=== PATIENT | male | born 1950 | race Caucasian/White ===

== ENCOUNTER 2018-02-21 09:00 | Observation (INO) | payer OTHER ==
[2018-03-06] MEDS ORDERED: LR 1,000 ML IV ONE (05:42)
--- NOTE | 2018-03-06 07:03 | PDHPUP ---
History & Physical Update H&P update statement: This history and physical update is based on an assessment of the patient which was completed after admission or registration (within 24 hours), but prior to the surgery/procedure. H&P update: H&P reviewed & patient examined
[2018-03-06] MEDS ORDERED: ceFAZolin 2 GM/SWFI 2 GM/20 ML SYR IVP ONE (07:05)
--- NOTE | 2018-03-06 07:07 | PDANEPAE ---
ANE Past Medical History - Cardiovascular History Hx Hypertension: No Hx Arrhythmias: No Hx Chest Pain: No Hx Coronary Artery / Peripheral Vascular Disease: No Hx CHF / Valvular Disease: No Hx Palpitations: No - Pulmonary History Hx COPD: No Hx Asthma/Reactive Airway Disease: No Hx Recent Upper Respiratory Infection: No Hx Oxygen in Use at Home: No Hx Sleep Apnea: No Sleep Apnea Screening Result - Last Documented: Negative - Neurologic History Hx Cerebrovascular Accident: No Hx Seizures: No Hx Dementia: No - Endocrine History Hx Diabetes: No - Renal History Hx Renal Disorders: No - Liver History Hx Hepatic Disorders: No - Cancer History Hx Cancer: Yes Cancer History Comment: prostate - Congenital Disorder History Hx Congenital Disorders: No - GI History Hx Gastrointestinal Disorders: No - Other Health History Other Health History: lower denture - Chronic Pain History Chronic Pain: No - Surgical History Prior Surgeries: none ANE Review of Systems Review of Systems: - Exercise capacity METS (RN): 4 METS ANE Patient History - Allergies Allergies/Adverse Reactions: No Known Allergies Allergy (Verified 02/28/18 11:59) - Home Medications Home Medications: Acetaminophen [Tylenol 325mg (*)] 325 mg PO DAILY PRN 02/26/18 [Last Taken 02/20] Ascorbic Acid [Vitamin C 500 mg (*)] 500 mg PO DAILY 02/26/18 [Last Taken ] - NPO status NPO Since - Liquids (Date): 03/05/18 NPO Since - Liquids (Time): 20:00 NPO Since - Solids (Date): 03/05/18 NPO Since - Solids (Time): 19:00 - Smoking Hx Smoking Status: Former smoker - Family Anes Hx Family Hx Anesthesia Complications: none ANE Labs/Vital Signs - Vital Signs Blood Pressure: 146/92 Heart Rate: 79 Respiratory Rate: 16 O2 Sat (%): 95 Height: 176 cm Weight: 81 kg ANE Physical Exam - Airway Neck exam: FROM Mallampati Score: Class 2 Mouth exam: normal dental/mouth exam, dentures - Pulmonary Pulmonary: no respiratory distress, no rales or rhonchi, clear to auscultation - Cardiovascular Cardiovascular: regular rate and rhythym, no murmur, rub, or gallop - ASA Status ASA Status: II ANE Anesthesia Plan Anesthesia Plan: GA w LMA
[2018-03-06] MEDS ORDERED: fentaNYL 100 MCG/2 ML INJ ONE (07:13)
[2018-03-06] MEDS ORDERED: PROPOFOL/EMULSION 500 MG/50 ML BOTTLE IV ONE (07:13)
[2018-03-06] MEDS ORDERED: LIDOCAINE 2% JELLY 20 ML (UROJECT) ONE (07:31)
[2018-03-06] MEDS ORDERED: ONDANSETRON 4 MG/2 ML VIAL ONE (07:36)
[2018-03-06] MEDS ORDERED: epHEDrine SULFATE 10 MG/ML SYR ONE (07:36)
[2018-03-06] MEDS ORDERED: LIDOCAINE 2% 5 ML SDV ONE (07:36)
[2018-03-06] MEDS ORDERED: PROPOFOL 200 MG/20 ML VIAL ONE (08:21)
[2018-03-06] MEDS ORDERED: PHENYLEPHRINE HCL 100 MCG/ML SYR ONE (08:23)
[2018-03-06] MEDS ORDERED: ONDANSETRON DISINTEGRATING 4 MG TAB PO PRN (08:40)
[2018-03-06] MEDS ORDERED: ONDANSETRON 4 MG/2 ML VIAL IVP PRN ×2 (08:40→08:42)
[2018-03-06] MEDS ORDERED: OPIUM/BELLADONNA ALKALO SUPP PR PRN (08:40)
[2018-03-06] MEDS ORDERED: HYDROCODONE/APAP 5/325 TAB PO PRN (08:40)
--- NOTE | 2018-03-06 08:40 | POSTOPPROG ---
Post Op Note Date of Operation: 03/06/18 Surgeon: Louie Richardson Anesthesia: LMA Pre-op Diagnosis: prostate cancer, retention Procedure: turp Inf/Abcess present in the surg proc area at time of surgery?: No EBL: 50-100 Complications: none Drains: Other (catheter) Specimen(s): sent, dictated
[2018-03-06] MEDS ORDERED: fentaNYL 100 MCG/2 ML INJ IVP PRN (08:42)
[2018-03-06] MEDS ORDERED: NALOXONE HCL 0.4 MG/ML INJ IVP PRN (08:42)
[2018-03-06] MEDS ORDERED: ALBUTEROL 3 ML DEYVIAL IH PRN (08:42)
[2018-03-06] MEDS ORDERED: DEXAMETHASONE 4 MG/ML VIAL IVP PRN (08:42)
[2018-03-06] MEDS ORDERED: LR 500 ML IV PRN (08:42)
[2018-03-06] MEDS ORDERED: D5W LR 1,000 ML IV SCH (08:45)
--- NOTE | 2018-03-06 08:45 | POSTANESTH ---
Post Anesthetic Evaluation Cardiovascular Status: Normal, Stable, Similar to Pre-Op Cond Respiratory Status: Normal, Stable, Similar to Pre-op Cond. Level of Consciousness/Mental Status: Can Participate in Eval Pain Control: Adequate, Prn Tx Ordered Nausea/Vomiting Control: Adequate, Prn Tx Ordered Complications Possibly Related to Anesthesia: None Noted
--- NOTE | 2018-03-06 09:10 | GOP ---
[f rep st] OPERATIVE REPORT DATE OF OPERATION: 03/06/2018 SURGEON: Louie Richardson MD ANESTHESIA: Underwent general anesthesia. ANESTHESIOLOGIST: Genie Kennedy MD. PREOPERATIVE DIAGNOSIS: Prostate cancer with urinary retention and status post radiation. POSTOPERATIVE DIAGNOSIS: Prostate cancer with urinary retention and status post radiation, severe co ntraction of his pelvic floor. PROCEDURE PERFORMED: Urethral dilation and then transurethral resection of the prostate. FINDINGS: SPECIMENS: Sent to pathology. DESCRIPTION OF PROCEDURE: Prepped and draped in normal sterile fashion in dorsal lithotomy position. After appropriate time-out, we tried to pass the resectoscope and he was fixed at the pelvic floor with some scarring so at that point, I was able to pass a guidewire into the bladder and then with e nephrostomy tube cylinder technique dilation, I dilated to 26-Monegasque and then at that point, was ab le to pass the resectoscope under direct vision in the bladder. The bladder had no tumor stones or f oreign body, but he did have radiation changes of the trigone and base of the bladder and the intrave sical lobe. So at that point, I did a channel type TUR of the prostate, taking down the intravesical lobe and then going posterior and just up to about the 4 o'clock and 8 o'clock positions on the uret hra out to the verumontanum. The verumontanum was preserved. At the end of the procedure, the bladd er was Ellik 'd free of all chips and clots. Visualization revealed no residual chips or clots. Ure teral orifices were preserved and verumontanum preserved. External sphincter approximated at the mid line and symmetrically. Uro-jet was placed in the urethra and a 22-Monegasque catheter passed over a Marva deo guide. Balloon inflated to 60 cc and urine was clear. He irrigated clear. He will be admitted for postoperative care CONSENT: Preoperatively, I did discuss with him and his in detail the risk of the surgery of bl eeding, infection, inability to do the procedure, urinary incontinence and postop scarring and writte n verbal consent had been obtained. They were aware of the potential risks and gave consent for this . COMPLICATIONS: None. /[id number]/MODL
[2018-03-06] MEDS: ACETAMINOPHEN 325 MG TAB PO PRN (19:22)
[2018-03-07] MEDS: ACETAMINOPHEN 325 MG TAB PO PRN (04:27)
[2018-03-07 08:46] VITALS: BP 107/65
--- NOTE | 2018-03-07 09:26 | SOAPPROG ---
SOAP Progress Note Assessment/Plan: Assessment: Prostate cancer Acute causing retention Urinary retention Acute POD 1, remove gage and consider dc home, path pending Plan: DC gage, dc if voids 03/07/18 10:57 Subjective: happy and ready for DC Objective: Vital Signs Temp Pulse Resp BP Pulse Ox 36.8 C 77 16 107/65 91 L 03/07/18 08:43 03/07/18 08:43 03/07/18 08:43 03/07/18 08:43 03/07/18 08:43 03/06/18 03/07/18 03/08/18 05:59 05:59 05:59 Intake Total 1500 Output Total 1950 2800 Balance -450 -2800 Physical Exam - Physical Exam General Appearance: alert Neck: supple Respiratory: No respiratory distress Cardiac/Chest: regular rate, rhythm Abdomen: soft Back: No CVA tenderness Neuro/Psych: alert, oriented x 3 ICD10 Worksheet Patient Problems: Problems Problem Status Onset Prostate cancer Acute Urinary retention Acute - ICD10 Problem Qualifiers (1) Prostate cancer (2) Urinary retention
== END 2018-03-07 15:36 | disposition home or self-care (01) ==
LOC: INTOOBSV 03-06 05:35 → F1N 03-06 05:35
PROVIDERS: ADMIT Specialist; ATTEND Specialist
DX: C61 Malignant neoplasm of prostate (principal); N40.0 Benign prostatic hyperplasia without lower urinary tract symptoms; Z92.3 Personal history of irradiation; Z87.891 Personal history of nicotine dependence
CPT/HCPCS: 52601; C1769; G0378; J0690; J2370; J2405; J2704; J3010

== ENCOUNTER 2018-07-16 06:33 | Day surgery (SDC) | payer OTHER ==
[2018-07-16] MEDS ORDERED: NALOXONE HCL 0.4 MG/ML INJ IVP PRN (07:21)
[2018-07-16] MEDS ORDERED: MIDAZOLAM 2 MG/2 ML VIAL IVP PRN (07:21)
[2018-07-16] MEDS ORDERED: fentaNYL 100 MCG/2 ML INJ IVP PRN (07:21)
[2018-07-16] MEDS ORDERED: MEPERIDINE 25 MG/ML SYR IVP PRN (07:21)
[2018-07-16] MEDS ORDERED: FLUMAZENIL 0.5 MG/5 ML MDV IVP PRN (07:21)
[2018-07-16] MEDS ORDERED: NS 1,000 ML IV SCH (07:30)
[2018-07-16] MEDS ORDERED: ceFAZolin 2 GM/DEXTROSE 100 ML IV ONE (08:00)
[2018-07-16 08:04] LABS: PLATELET COUNT 213 10^3/uL (150-400)
[2018-07-16 08:14] LABS: INR 0.95 (0.83-1.16); PROTIME(PATIENT) 12.9 SEC (12.0-15.0)
[2018-07-16] MEDS ORDERED: LIDOCAINE 1% 300 MG/30 ML SDV ONE (08:45)
[2018-07-16] MEDS ORDERED: HEPARIN 50,000 UNIT/10 ML VIAL ONE (08:46)
[2018-07-16] MEDS ORDERED: NALOXONE HCL 0.4 MG/ML INJ ONE (08:48)
[2018-07-16] MEDS ORDERED: MIDAZOLAM 2 MG/2 ML VIAL ONE ×2 (08:48→09:42)
[2018-07-16] MEDS ORDERED: FLUMAZENIL 0.5 MG/5 ML MDV IVP ONE (08:48)
[2018-07-16] MEDS ORDERED: fentaNYL 100 MCG/2 ML INJ ONE ×2 (08:48→09:42)
--- NOTE | 2018-07-16 09:25 | PDRADPRE ---
Radiology History & Physical Indication for procedure: cancer, other (Need for pheresis catheter for Provenge therapy.) Home medications: Acetaminophen [Tylenol 325mg (*)] 325 mg PO DAILY PRN 02/26/18 [Last Taken 07/02] Ascorbic Acid [Vitamin C 500 mg (*)] 500 mg PO DAILY 02/26/18 [Last Taken ] Allergies/Adverse Reactions: No Known Allergies Allergy (Verified 02/28/18 11:59) Mental status: A&Ox3 Heart exam: regular rate and rhythm Lungs exam: clear to auscultation Mallampati Score: Class 2
--- NOTE | 2018-07-16 09:26 | PDPROPOC ---
Sedation Plan of Care Sedation Plan of Care: vital signs stable, mental status noted, patient educated of risks, benefits, alternatives, patient can tolerate sedation ASA Classification: ASA 2 Planned drugs: fentanyl, midazolam Mallampati Score: Class 2 Mallampati Reference Image: Patient passed 3-3-2 rule?: Yes
[2018-07-16] MEDS ORDERED: ACETAMINOPHEN 325 MG TAB PO PRN (10:02)
[2018-07-16] MEDS ORDERED: ONDANSETRON 4 MG/2 ML VIAL IVP PRN (10:02)
--- NOTE | 2018-07-16 10:02 | PDRADPN ---
Radiology Procedure Note Date of Procedure: 07/16/18 Radiologist: Madi Fuller Anesthesia: IV Sedation Pre-op Diagnosis: Prostate CA Post-op Diagnosis: Prostate CA Indication: Pheresis Procedure: Tunneled CVC catheter placement Finding(s): Tunneled right IJ CVC Inf/Abcess present in the surg proc area at time of surgery?: No
[2018-07-16 13:09] VITALS: BP 144/84
== END 2018-07-16 13:04 | disposition home or self-care (01) ==
LOC: FIMAGING 06:33
PROVIDERS: ATTEND Specialist
DX: C61 Malignant neoplasm of prostate (principal)
CPT/HCPCS: 84402-90; C1750; G0103; J0690; J1644; J2250; J2310; J3010

== ENCOUNTER 2018-08-07 12:34 | Inpatient (IN) | payer OTHER ==
--- NOTE | 2018-08-07 12:59 | EDPHY ---
H & P Stated Complaint: left leg swelling and decreased O2 sats - Personal History Current Tetanus/Diphtheria Vaccine: Unsure Current Tetanus Diphtheria and Acellular Pertussis (TDAP): Unsure - Medical/Surgical History Hx Asthma: No Hx Chronic Respiratory Disease: No Hx Diabetes: No Hx Cardiac Disease: No Hx Renal Disease: No Hx Cirrhosis: No Hx Alcoholism: No Hx HIV/AIDS: No Hx Splenectomy or Spleen Trauma: No Other PMH: diagnosed with prostate cancer 2004 currently undergoing immune therapy - Social History Smoking Status: Never smoked Alcohol Use: Sober Time Seen by Provider: 08/07/18 12:49 HPI/ROS: CHIEF COMPLAINT: Left lower extremity swelling and pain HISTORY OF PRESENT ILLNESS: 68-year-old male with metastatic prostate cancer presents with left lower extremity swelling. Onset of swelling yesterday afternoon, gradually increasing. Associated with moderate pain of the entire left leg. Was in Dr. Richardson office prior to arrival for an IV dose of immunotherapy. No shortness of breath or chest pain. No prior history of thromboembolism. REVIEW OF SYSTEMS: complete 10 point ROS reviewed and is negative except for the noted elements in the HPI (Shamika Cali S) - Physical Exam Exam: General Appearance: Alert, pleasant Eyes: Pupils equal and round, no conjunctival pallor or injection ENT, Mouth: Mucous membranes moist Neck: Normal inspection Respiratory: Lungs are clear to auscultation Cardiovascular: Regular rate and rhythm Gastrointestinal: Abdomen is soft and nontender Neurological: A&O, nonfocal, normal gait Skin: Warm and dry, no rash Extremities: Left lower extremity-moderate swelling and tenderness of the entire leg with a reddish discoloration Vascular: 1+ pedal pulses Psychiatric: Mood and affect normal (Shamika Cali S) Constitutional: Initial Vital Signs Heart Rate 79 08/07/18 12:41 Respiratory Rate 21 H 08/07/18 12:41 Blood Pressure 129/85 H 08/07/18 12:41 O2 Sat (%) 96 08/07/18 12:41 O2 Delivery Mode Nasal Cannula O2 (L/minute) 2 Allergies/Adverse Reactions: No Known Allergies Allergy (Verified 02/28/18 11:59) Home Medications: Medication Instructions Recorded Ibuprofen [Motrin (*)] 200 mg PO DAILY PRN 08/07/18 Ranitidine HCl [Zantac 75] 75 mg PO DAILY PRN 08/07/18 diphenhydrAMINE [Benadryl 25 MG 25 mg PO DAILY PRN 08/07/18 (*)] Medical Decision Making - Diagnostics Imaging: Discussed imaging studies w/ radiator core tester Radiologist ED Course/Re-evaluation: I assumed care of this patient at 315. Currently we are awaiting repeat PTT as well as further interventions from hospital medicine and IR concerning the patient's extensive lower extremity DVT. Patient is also undergoing a CT scan of the chest and abdomen pelvis to evaluate for further thromboembolic disease. Patient's CT scan of the chest does demonstrate moderate right lower lobe clot burden. There is no thromboembolic disease in the IVC. Repeat PTT again is quite elevated at greater than 250. Of note, this lab value was drawn after the bolus of heparin. Patient's platelets are also noted to be 42, and IR will not be able to perform her procedure until the platelet count is closer to the 100 range. I consulted with Dr. Meadows regarding the above issues. He will consult with pharmacy with respect to initiation of the heparin drift and has ordered a platelet transfusion. Patient was taken to his inpatient bed at 4:45 p.m. I did discuss the CT results with the family and discussed the issues regarding abnormal coagulation panel and low platelets. Patient and his family deny any prior history of coagulopathy or thrombocytopenia (Nettie Sharp) Lower extremity ultrasound reveals extensive clot in the left lower leg. Results discussed with the patient. IV heparin started per protocol. Consulted Dr. Metzger for IR thrombolysis. Pt seen by Dr. Metzger, will plan for IR thrombolysis. Hospitalist service was consulted for admission. CT pulmonary angiogram pending. Elevated PTT noted. Apparently, the PTT was drawn prior to initiation of heparin. ?lab error, Heparin drip held, will recheck PTT. Dr. Randolph informed, will f/u on PTT, restart IV Heparin if indicated. (Shamika Cali) Differential Diagnosis: Differential diagnosis includes though it is not limited to arterial compromise , cellulitis, necrotizing fasciitis, osteomyelitis, neurovascular compromise. ( Shamika Cali) - Data Points Laboratory Results: Laboratory Results 08/07/18 13:17 08/07/18 13:17 Medications Given: Hydrocodone Bitart/Acetaminophen (Anderson 5/325) 1 - 2 tab PO Q4HRS PRN PRN Reason: Pain, Moderate Able to Take PO Stop: 08/17/18 15:04 Last Admin: 08/08/18 14:47 Dose: 1 tab Argatroban 250 mg/ Dextrose 252.5 mls @ 0 mls/hr IV CONT JEOVANY; Per Protocol PRN Reason: Protocol Stop: 02/03/19 20:29 Last Admin: 08/07/18 20:36 Dose: 252.5 mls Discontinued Medications Fentanyl (Sublimaze) 0 mcg IVP ONCALL PRN PRN Reason: Per provider during procedure Stop: 08/08/18 19:15 Last Admin: 08/08/18 18:21 Dose: 100 mcg Heparin Sodium (Porcine) (Heparin Injection) 0 unit IVP EDNOW ONE Stop: 08/07/18 13:40 Last Admin: 08/07/18 14:30 Dose: 6,200 units Heparin Sodium (Porcine) (Heparin 50 Units/Ml (Premix)) 500 mls @ 0 mls/hr IV EDNOW ONE; Per Protocol PRN Reason: Protocol Stop: 08/07/18 13:40 Last Admin: 08/07/18 14:30 Dose: 500 mls Sodium Chloride (Ns) 1,000 mls @ 100 mls/hr IV CONT JEVOANY Stop: 08/08/18 01:14 Last Admin: 08/07/18 17:46 Dose: 1,000 mls Sodium Chloride (Ns) 1,000 mls @ 75 mls/hr IV CONT JEOVANY Stop: 08/08/18 21:34 Last Admin: 08/08/18 09:00 Dose: 1,000 mls Midazolam HCl (Versed) 0 mg IVP ONCALL PRN PRN Reason: Per provider during procedure Stop: 08/08/18 19:15 Last Admin: 08/08/18 18:21 Dose: 2 mg Departure - Departure Disposition: [facility] Inpatient Acute Clinical Impression: DVT (deep venous thrombosis) Qualifiers: DVT location: lower extremity Affected thrombotic vein of extremity: unspecified vein of extremity Chronicity: acute Laterality: left Qualified Code( s): I82.402 - Acute embolism and thrombosis of unspecified deep veins of left lower extremity Pulmonary embolism Qualifiers: Pulmonary embolism type: other Chronicity: acute Acute cor pulmonale presence: without acute cor pulmonale Qualified Code(s): I26.99 - Other pulmonary embolism without acute cor pulmonale Condition: Fair
--- NOTE | 2018-08-07 13:36 | GHP ---
DATE OF ADMISSION: 08/07/2018 This is a consultation/addition to the H and P. By history, this is a 68-year-old [place] gentleman, who has had metastatic prostate cancer with lo rosario disease. His history has been difficult to piece together, but he had had biopsies in 2004 or 09 04, and had 39 IMR treatments for prostate cancer maybe at [facility], but could have been at [facility], in 2005, and through that time he has had a CAT scan and bone scans that were okay. He was clin ically staged as a Laure T2b N0 M0. He had been on clean intermittent catheterization for obstruct ion. We did put him on Lupron, trying to alleviate his obstruction. There is question of whether he had additional radiation in 2012, but I could not clarify that. He had had a TUR of the prostate in February of 2018, and that revealed he had prostate cancer residual. On exam, he had a fixed pelvis that was either related to metastatic disease, which was my impression based on his rising PSA and having metastatic castrate resistant prostate cancer. After the TUR of the prostate, he did well on voidin g, and with his PSA going up, we elected to try to do additional therapy, so we ordered an Axumin sca n that was not done due to cost. He had a bone scan recently that was without cancer. He did not pedroza ve the Axumin because of cost above and beyond his insurance coverage. So, he has had his port place d and he had his 1st Provenge 2 weeks ago and had the 2nd Provenge today. On 08/06, he presented to the office because he had acute swelling of his left leg that was edematous, and it was not painful. He had no pain over any deep vessels in his leg and the impression was this was lymphedema related t o his cancer. We see him in the office today and his swelling is worse, and he has pain in the leg, not necessarily over his blood vessels, and the impression is that he should be admitted for pain con trol and further assessment. He had an ultrasound planned today at 2:30 as an outpatient, but I have changed the plans to be admitted to assess for his pelvic malignancy. I have asked Dr. Castellanos to tr y to review his records to see if they can glean how much radiation he has had and on discussion afte r his ultrasound, we would recommend that he get an MRI of the pelvis and pelvis with and without con trast to assess for active prostate cancer with a lesion that maybe palliative radiation to the pelvi s, if there is a tumor site, could be performed. I did take him to the emergency room by wheelchair, checked him in there, talked with Dr. Cali and I feel that the transfer of care has been appropriate . PAST MEDICAL HISTORY: Urinary retention secondary to prostate cancer and he has a rising PSA for met astatic castrate resistant prostate cancer with a bone scan without lesions. PAST SURGICAL HISTORY: TURP. MEDICATIONS: Gabapentin. ALLERGIES: None. FAMILY HISTORY: Noncontributory. SOCIAL HISTORY: Nondrinker, nonsmoker. He is . REVIEW OF SYSTEMS: Negative cardiac, respiratory, GI and endocrine. He does have the prostate cance r and the severe left leg swelling. PHYSICAL EXAM: GENERAL: He is without acute distress, other than the left leg being swollen and hav ing difficulty ambulating. After his Provenge, he has had some chills. Prior to the Provenge, I did aspirate and irrigate the port site, confirmed there was no clot related to the port. Then, at the end, I had re-primed the port with 2.9 cc of heparin, and that site looks normal without suggestion o f infection. HEART: Regular rate and rhythm. ABDOMEN: Normal with no organomegaly, rebound or guar ding. LOWER EXTREMITIES: As discussed. His prior PSA in April of 2018, had been down to 3.37, and most recent, as of 07/16/2018, is up to 5.1 2. It did go down from 6.4 after the TURP, but then proceeded to rise. He originally in April had a testosterone of 31 that shows that he has normal effect of the Lupron. At the present time, he is be ing admitted. I had asked the hospitalist to see him and I will continue following the patient. I a ppreciate the hospitalist and the emergency room staff's care. /[id number]/MODL
[2018-08-07] MEDS ORDERED: HEPARIN/DEXTROSE 500 ML IV ONE (13:39)
[2018-08-07] MEDS ORDERED: HEPARIN 10,000 UNIT/10 ML MDV (1,000 UNIT/ML) IVP ONE ×2 (13:39→15:09)
[2018-08-07 13:54] LABS: INR 1.19 (0.83-1.16); PROTIME(PATIENT) 15.3 SEC (12.0-15.0)
[2018-08-07 14:11] LABS: PLATELET COUNT 42 10^3/uL (150-400)
--- NOTE | 2018-08-07 14:27 | CPEKG ---
Test Reason : OPEN Blood Pressure : / mmHG Vent. Rate : 086 BPM Atrial Rate : 086 BPM P-R Int : 159 ms QRS Dur : 077 ms QT Int : 366 ms P-R-T Axes : 054 042 034 degrees QTc Int : 438 ms Sinus rhythm Abnormal R-wave progression, early transition Confirmed by Shamika Cali ([id number]) on 08/07/2018 2:27:23 PM Referred By: Confirmed By:Shamika Cali
[2018-08-07] MEDS ORDERED: IOPAMIDOL (ISOVUE 370) 100 ML BTL IV ONE ×2 (14:37→15:13)
[2018-08-07] MEDS ORDERED: ONDANSETRON DISINTEGRATING 4 MG TAB PO PRN (15:05)
[2018-08-07] MEDS ORDERED: oxyCODONE IR 5 MG TAB PO PRN (15:05)
[2018-08-07] MEDS ORDERED: HYDROCODONE/APAP 5/325 TAB PO PRN (15:05)
[2018-08-07] MEDS ORDERED: ONDANSETRON 4 MG/2 ML VIAL IVP PRN (15:05)
[2018-08-07] MEDS ORDERED: ACETAMINOPHEN 325 MG TAB PO PRN (15:05)
[2018-08-07] MEDS ORDERED: HYDROmorphONE/DILAUDID 1 MG/ML INJ IVP PRN (15:05)
[2018-08-07] MEDS ORDERED: PROTOCOL MAGNESIUM 1 DOSE IV PRN (15:05)
[2018-08-07] MEDS ORDERED: HEPARIN 10,000 UNIT/10 ML MDV (1,000 UNIT/ML) IVP PRN (15:09)
[2018-08-07] MEDS ORDERED: HEPARIN/DEXTROSE 500 ML IV SCH (15:15)
[2018-08-07] MEDS ORDERED: NS 1,000 ML IV SCH (15:15)
--- NOTE | 2018-08-07 15:18 | PDGENHP ---
History and Physical - Chief Complaint swolled left leg - History of Present Illness 68-year-old male with metastatic prostate cancer presents with left lower extremity swelling. Onset of swelling yesterday afternoon, gradually increasing. Associated with moderate pain of the entire left leg. Was in Dr. Richardson office prior to arrival for an IV dose of immunotherapy. No shortness of breath or chest pain. No prior history of thromboembolism. In the ER he is found to have a large Left LE clot involving the Common Femoral Vein, Popliteal Vein, Tibial Peroneal trunk, Paired posterior Tibial veins and Peroneal Veins. He has been started on Heparin. Dr. Metzger has been consulted for thrombolysis He has no resp symptoms. He in RA. He denies cp, sob, fever EKG does not have any e/o ischemia. SR. PMH: diagnosed with prostate cancer 2003 currently undergoing immune therapy Soc Hx No tobacco or ETOH. originally from [facility] FmHx: non contributory History Information - Allergies/Home Medication List Allergies/Adverse Reactions: No Known Allergies Allergy (Verified 02/28/18 11:59) Home Medications: Ibuprofen [Motrin (*)] 200 mg PO DAILY PRN 08/07/18 [Last Taken Unknown] Ranitidine HCl [Zantac 75] 75 mg PO DAILY PRN 08/07/18 [Last Taken Unknown] diphenhydrAMINE [Benadryl 25 MG (*)] 25 mg PO DAILY PRN 08/07/18 [Last Taken Unknown] I have personally reviewed and updated: medical history, social history - Social History Smoking Status: Never smoked Alcohol Use: Sober Review of Systems Review of Systems: ROS: 10pt was reviewed & negative except for what was stated in HPI & below Physical Exam Physical Exam: Temp Pulse Resp BP Pulse Ox 85 18 129/85 H 95 08/07/18 14:34 08/07/18 14:34 08/07/18 14:34 08/07/18 14:34 Constitutional: no apparent distress Eyes: PERRL, EOMI Ears, Nose, Mouth, Throat: moist mucous membranes, hearing normal Cardiovascular: regular rate and rhythym, edema (left lower extremity edema) Respiratory: no respiratory distress, no rales or rhonchi, clear to auscultation Gastrointestinal: normoactive bowel sounds, soft, non-tender abdomen Skin: warm Neurologic: AAOx3 Psychiatric: interacting appropriately, not anxious, not encephalopathic Lymph, Heme, Immunologic: No petechiae Lab Data & Imaging Review 08/07/18 13:17 08/07/18 13:17 WBC 11.23 10^3/uL (3.80-9.50) H 08/07/18 13:17 RBC 4.35 10^6/uL (4.40-6.38) L 08/07/18 13:17 Hgb 12.7 g/dL (13.7-17.5) L 08/07/18 13:17 Hct 36.6 % (40.0-51.0) L 08/07/18 13:17 MCV 84.1 fL (81.5-99.8) 08/07/18 13:17 MCH 29.2 pg (27.9-34.1) 08/07/18 13:17 MCHC 34.7 g/dL (32.4-36.7) 08/07/18 13:17 RDW 13.2 % (11.5-15.2) 08/07/18 13:17 Plt Count 42 10^3/uL (150-400) L 08/07/18 13:17 MPV 9.6 fL (8.7-11.7) 08/07/18 13:17 Neut % (Auto) 90.4 % (39.3-74.2) H 08/07/18 13:17 Lymph % (Auto) 5.3 % (15.0-45.0) L 08/07/18 13:17 [place] % (Auto) 3.2 % (4.5-13.0) L 08/07/18 13:17 Eos % (Auto) 0.2 % (0.6-7.6) L 08/07/18 13:17 Baso % (Auto) 0.4 % (0.3-1.7) 08/07/18 13:17 Nucleat RBC Rel Count 0.0 % (0.0-0.2) 08/07/18 13:17 Absolute Neuts (auto) 10.15 10^3/uL (1.70-6.50) H 08/07/18 13:17 Absolute Lymphs (auto) 0.60 10^3/uL (1.00-3.00) L 08/07/18 13:17 Absolute Monos (auto) 0.36 10^3/uL (0.30-0.80) 08/07/18 13:17 Absolute Eos (auto) 0.02 10^3/uL (0.03-0.40) L 08/07/18 13:17 Absolute Basos (auto) 0.04 10^3/uL (0.02-0.10) 08/07/18 13:17 Absolute Nucleated RBC 0.00 10^3/uL (0-0.01) 08/07/18 13:17 Immature Gran % 0.5 % (0.0-1.1) 08/07/18 13:17 Immature Gran # 0.06 10^3/uL (0.00-0.10) 08/07/18 13:17 RBC/WBC/PLT Morphology TNP 08/07/18 13:17 Platelet Estimate DECREASED (ADEQ) L 08/07/18 13:17 Echinocytes 1+ H 08/07/18 13:17 Elliptocytes 1+ H 08/07/18 13:17 PT 15.3 SEC (12.0-15.0) H 08/07/18 13:15 INR 1.19 (0.83-1.16) H 08/07/18 13:15 APTT 207.6 SEC (23.0-38.0) H* 08/07/18 13:15 Sodium 137 mEq/L (135-145) 08/07/18 13:17 Potassium 5.5 mEq/L (3.3-5.0) H 08/07/18 13:17 Chloride 102 mEq/L (97-110) 08/07/18 13:17 Carbon Dioxide 23 mEq/l (22-31) 08/07/18 13:17 Anion Gap 12 mEq/L (6-14) 08/07/18 13:17 BUN 29 mg/dL (7-23) H 08/07/18 13:17 Creatinine 1.1 mg/dL (0.7-1.3) 08/07/18 13:17 Estimated GFR > 60 08/07/18 13:17 Glucose 188 mg/dL (70-100) H 08/07/18 13:17 Calcium 9.6 mg/dL (8.5-10.4) 08/07/18 13:17 Assessment & Plan Assessment: #Large left leg DVT involving Left external Iliac Vein, Left Common Femoral Vein , Popliteal Vein, Tibial Peroneal Trunk, Paired posterior tibial veins and peroneal veins -will have thrombolysis per IR -on Heparin, started in the ER #Left LE pedal edema due to above #Hyperkalemia, mild -provide IVF and recheck #possible dehydration -IVF per above #Metastatic prostate cancer #hx of urinary retention, no longer needing a gage, he reports no difficulties with voiding Full code
--- NOTE | 2018-08-07 20:09 | GCON ---
RADIATION ONCOLOGY CONSULTATION DATE OF CONSULTATION: 08/07/2018 REFERRING PHYSICIAN: Louie Richardson MD REASON FOR CONSULTATION: Possible metastatic prostate cancer, role for radiation? PATIENT IDENTIFICATION: The patient is a 68-year-old Lebanese gentleman with a history of metastati c adenocarcinoma of the prostate, status post initial definitive radiation plus androgen deprivation therapy, but ultimately having a biochemical recurrence and metastatic disease recurrence necessitati ng androgen deprivation therapy and most recently Provenge immunotherapy with Dr. Duarte Richardson. He was admitted today from clinic with Dr. Richarsdon for left leg swelling and I am being consulted regarding th e role of possible radiation presuming that some of this is due to metastatic prostate cancer. HISTORY OF PRESENT ILLNESS: Of note, much of his history is gained from prior medical records from [facility] care of the patient. He is somewhat of a poor historian and there is a language barrier as well g iven the fact that his deering language is [place]. I was unable to get a [place] freight shipping agent for my visit with him, but he is accompanied today by his who does also provide some history. What I am able to gather from his prior records is that he was diagnosed with a high-risk prostate adenoc arcinoma, clinical T1c, [place] score 3+4 equals 7, PSA 30.07 in 2004. He was under the care of Dr. Louie Santillan of Radiation Oncology at [facility] at that time. From August 20, 2005 to October 16, 2005, the patient received definitive dose escalated external beam radiotherapy with an IMRT/IGRT technique to a dose initially of 46 Gy in 23 fractions to the pelvic lymph nodes and prosta te, followed by a 32 Gy in 16 fraction boost to the prostate. He seemed to tolerate treatment relati vely well without any long-term issues. He did receive concurrent androgen deprivation therapy with at least 2 long-term injections of Lupron. The history after this definitive course is a little bit unclear. It seems that he was potentially c ontrolled for several years and then had a biochemical recurrence and possibly distant metastatic rec urrence, although recent bone imaging is negative. I do not see a recent PSA on him, however, I have a few hospitalizations in 2018 when he presented with urinary retention after radiation. This was i n February of 2018 when he was evaluated by Dr. Richardson with urinary retention and severe contraction of the pelvic floor. Dr. Richardson performed a urethral dilation and then a transurethral resection of the pro state. The pathology from that did show persistent prostatic adenocarcinoma, [place] score 4+3, invo lving at least 60% of the tissue fragments and 25% of the total prostatic tissue. Extraprostatic ext ension was not identified, no lymphovascular space invasion, nor was there any perineural invasion. He was discharged home at that time. My partner, Dr. Castellanos, received a call today from Dr. Duarte Richardson in regard to the patient's new onset left leg swelling which Dr. Richardson noted in an office visit to deliver Red today in clinic. To expedite workup and management and further investigation, Dr. Richardson is directly admitting the patient for further workup and management. Out of concern for DVT, an ultrasound and Doppler of the lower extremity was performed today. Unfort unately, this did show a hypoechoic noncompressible clot noted from the level of the distal left exte rnal iliac vein caudally into the left common femoral vein, femoral vein, popliteal vein, tibial [place] trunk in the paired posterior tibial and peroneal veins. The distal portion of the IVC appears patent. The greater saphenous vein is partially clotted circumferentially near the saphenofemoral ju nction. Popliteal fossa is unremarkable. The patient is also awaiting a CT scan of chest, abdomen, and pelvis, as well as an MRI of the pelvis for further evaluation of local symptoms. INTERVAL HISTORY: The patient reports that really the only issue is his left leg pain and really dec reased ability to ambulate because of it. The left knee is swollen and it looks like it is bruised a nd is a little bit tender to palpation. Otherwise he reports normal urination. He denies pain into his pelvis. He denies bone pain anywhere else. He has been in his usual state of health. Denies an y active weight loss, issues with appetite, decline in performance status, and overall has been in hi s usual state of health. REVIEW OF SYSTEMS: A complete review of systems was obtained and is negative except as mentioned abo ve. PAST MEDICAL HISTORY: Prostate cancer diagnosed in 2004 as detailed above. PAST SURGICAL HISTORY: Unclear. FAMILY HISTORY: Noncontributory to patient's current condition. SOCIAL HISTORY: He is to his who is present and supportive here. Nonsmoker, no alcohol use. MEDICATIONS: Hospital medications, Tylenol, [place], Pepcid, heparin, Dilaudid as needed, mag sulfate, Zofran, oxycodone as needed, normal saline. ALLERGIES: No known drug allergies. PHYSICAL EXAM: VITAL SIGNS: Blood pressure 129/85, heart rate 85, respiratory rate 18, oxygen sats 95%. GENERAL: The patient is a well-appearing, pleasant 68-year-old gentleman, appears younger than stated age, in no acute distress. Alert and oriented x3. He is lying comfortably in his hospital b ed in the emergency department. CARDIOVASCULAR: Regular rate and rhythm. Normal S1, S2. No murmur s or gallops. LUNGS: Clear to auscultation bilaterally. No wheezes, rales, or rubs. EXTREMITIES: Extremity exam unremarkable aside from a very swollen left lower extremity from the knee down to the foot. The left knee is particularly swollen with some nonpitting edema and no palpable masses or ash ny abnormalities in that location. No lymphadenopathy palpated in the groin. IMAGING: Please see HPI above for recent ultrasound and doppler of his lower extremity results. Oth erwise, he is awaiting MRI of the pelvis as well, as a CT of the chest, abdomen, and pelvis. LABORATORIES: White blood cell count 11.23, hemoglobin 12.7, hematocrit 36.6, platelet count 42, ANC 90.4, PT 15.3, INR 1.19, APTT 207.6. Potassium 5.5, creatinine 1.1. The last PSA that I have note of in a prior history and physical by Dr. Hager in November 2007 suggested the PSA was 5.8 at that leroy e. It was mentioned that it was increasing, which prompted initiation of the Provenge. PATHOLOGY: Prostate adenocarcinoma. ASSESSMENT/PLAN: The patient is a 68-year-old gentleman with a history of advanced prostate adenocar cinoma, status post initial definitive radiation with androgen deprivation therapy and recently start ing on Provenge due to disease progression. He was directly sent to the emergency department from [facility] of Dr. Richardson today because of new onset left leg swelling and was found to have a very extensive deep venous thrombosis in the blood vessels of his left leg. I am being consulted regarding the rol e of future radiation once imaging results come back. I had a short discussion with the patient and his today in clinic regarding the patient's curren t clinical condition. Prior to my meeting with him, I did not have the results of the ultrasound and therefore was not completely aware that he had a deep venous thrombosis in that left leg. Certainly , that is what is causing the current symptomatology of left leg swelling and pain and presumably gabe t will be treated with anticoagulation therapy. Otherwise, that seems to be the patient's main issue at this point. I asked him whether he is having any other symptoms such as bone pain that could be suggestive of progressive metastatic disease. He seems to be urinating quite well. Dr. Richardson was co ncerned that there was some pelvic pathology related to his prostate cancer that could be causing his symptoms and while that is certainly possible, I think that the majority of his symptoms is being ca used by the blood clot and that should be treated appropriately. With that said, it seems like he is lined up for a host of imaging studies including a CT chest, abdo men, and pelvis, as well as an MRI of the pelvis. My plan is to follow up and review that imaging on ce it comes back so that we can determine if there are any other issues that may be alleviated with a palliative course of radiation. Otherwise, the patient will be moved from the emergency department to the floor for further investigation and workup. I did exchange my contact information with him. If he has any questions or concerns, he is encouraged to call for assistance. I did explain that he has already had a course of radiation, albeit about 13 years ago, to the pelvis and therefore that might limit how much dose we are able to get into the pelvis for palliative purpo ses if need be. Otherwise, I appreciate the consult by Dr. Richardson and I appreciate the opportunity to take care of this patient. /[id number]/MODL
[2018-08-07] MEDS ORDERED: ARGATROBAN 250 MG in D5W 250 ML IV SCH (20:30)
[2018-08-08 02:45] LABS: PLATELET COUNT 68 10^3/uL (150-400)
[2018-08-08] MEDS ORDERED: NS 1,000 ML IV SCH (08:15)
--- NOTE | 2018-08-08 08:24 | HOSPPROG ---
Hospitalist Progress Note Assessment/Plan: 68 yo male with metastatic prostate cancer with recent Heparin exposure admitted with acute bilateral PE and LLE DVT and acute thrombocytopenia. Concern for HIT #Bilateral DVT #Large left leg DVT involving Left external Iliac Vein, Left Common Femoral Vein , Popliteal Vein, Tibial Peroneal Trunk, Paired posterior tibial veins and peroneal veins -Concern for May-Thurner syndrome, but this does not explain the acute thrombocytopenia #Acute Thrombocytopenia #Concern for HIT #Elevated PTT on admission: This was likely a sampling error. #Left LE pedal edema due to above #Hyperkalemia, resolved #possible dehydration, resolved #Metastatic prostate cancer #hx of urinary retention, no longer needing a gage, he reports no difficulties with voiding Full code Plan: -Cont Argatroban -Await HIT workup -He has responded to the platelet yesterday. He will get one more unit today with the hopes getting the platelets above 100 and proceeding with thrombolysis per IR this afternoon. -Will make NPO D/W Heme. Will d/w IR total critical care time is 40 minutes including coordination of care Subjective: no cp or sob. no n/v. platelets are improving Objective: Vital Signs Temp Pulse Resp BP Pulse Ox 37 C 75 12 115/68 93 08/08/18 04:00 08/08/18 06:00 08/08/18 06:00 08/08/18 06:00 08/08/18 06:00 Laboratory Results 08/08/18 02:30 08/08/18 02:30 08/07/18 08/08/18 08/09/18 05:59 05:59 05:59 Intake Total 1435 Output Total 200 100 Balance 1235 -100 PT 15.3 SEC (12.0-15.0) H 08/07/18 13:15 INR 1.19 (0.83-1.16) H 08/07/18 13:15 - Physical Exam Constitutional: no apparent distress Eyes: PERRL Ears, Nose, Mouth, Throat: moist mucous membranes, hearing normal Cardiovascular: regular rate and rhythym, edema (LLE edema) Respiratory: no respiratory distress Gastrointestinal: normoactive bowel sounds Skin: warm Neurologic: AAOx3 Psychiatric: interacting appropriately, not anxious, not encephalopathic Lymph, Heme, Immunologic: No petechiae ICD10 Worksheet Patient Problems: Problems Problem Status Onset DVT (deep venous thrombosis) Acute Prostate cancer Acute Urinary retention Acute
[2018-08-08] MEDS ORDERED: FAMOTIDINE 20 MG TAB PO PRN (09:00)
--- NOTE | 2018-08-08 09:13 | PDMN ---
Medical Necessity Medical necessity: MCG: M350 DVT A-4 days: Large LE clot involving common femoral vein, popliteal vein, tibial peroneal truck, paired posterior tibial veins and peroneal veins. Hep drip and thrombolysis. PNH: prostate Ca 2003 currently undergoing immune tx. anticipate > 2 MN ongoing med [facility] care
--- NOTE | 2018-08-08 10:01 | ASMTCASEMG ---
Living Arrangements What is your living Answers: With Spouse arrangement? Who do you live with? Type Of Residence What kind of residence do Answers: House you live in? Discharge Plan Comments Coordination Status Comments Notes: Patient is a 68yo male with metastatic prostate cancer who presents with lower left extremity swelling. Patient has been admitted for a large left leg DVT involving left external Iliac Vein, left common femoral vein, popliteal vein, tibial peroneal trunk, possible dehydration, and hyperkalemia. No therapies ordered at this time. D/C plan TBD. CM will follow. Date Signed: 08/08/2018 10:00 AM Electronically Signed By:Brittny Paiz LCSW
--- NOTE | 2018-08-08 10:32 | SOAPPROG ---
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 and appreciate medical assistant secretary care Prostate cancer Acute stable and continue care plan presently in place Urinary retention Acute Hx of and if need gage can be placed, pt seems not to be in retention at this time Plan: As per ICU provider, thrombolysis later today if ordered by ICU provider 08/08/18 10:29 Subjective: feeling ok Objective: Vital Signs Temp Pulse Resp BP Pulse Ox 37.4 C 83 18 132/64 H 94 08/08/18 08:00 08/08/18 10:00 08/08/18 10:00 08/08/18 10:00 08/08/18 10:00 Laboratory Results 08/08/18 02:30 08/07/18 08/08/18 08/09/18 05:59 05:59 05:59 Intake Total 1435 Output Total 200 100 Balance 1235 -100 PT 15.3 SEC (12.0-15.0) H 08/07/18 13:15 INR 1.19 (0.83-1.16) H 08/07/18 13:15 Physical Exam - Physical Exam General Appearance: alert Neck: supple Respiratory: No respiratory distress Cardiac/Chest: regular rate, rhythm Abdomen: soft Back: No CVA tenderness Extremities: other (left DVT yet leg seems softer after bed rest, still swollen , denies pain) Neuro/Psych: alert, oriented x 3 ICD10 Worksheet Patient Problems: Problems Problem Status Onset DVT (deep venous thrombosis) Acute Prostate cancer Acute Urinary retention Acute
[2018-08-08 10:33] LABS: PLATELET COUNT 100 10^3/uL (150-400)
--- NOTE | 2018-08-08 14:35 | PDCONSULT ---
Healthcare Customer Service Note: Hematology/oncology consultation note Reason for consultation: Thrombocytopenia and DVT/PE History of present illness: Jordan is a very pleasant 68-year-old male with history of recurrent metastatic prostate cancer who was admitted through [facility] for DVT and PE. He initially was diagnosed in 2004 with high risk localized prostate cancer [place] score 3+4 PSA 30. He received definitive radiation in 2004 to the prostate alongside pelvic lymph nodes. He then received adjuvant androgen deprivation therapy. He then had biochemical relapse and in February of [address] Richardson being treated for metastatic recurrent disease. Most recently he was started on Provenge. He had a right-sided tunneled catheter placed around 3 weeks ago. He has undergone for pharesis receiving heparin products during this process. He states that around 3 days ago prior to admission he had swelling in his left calf. That progressed to significant swelling of the entire left leg with associated shortness of breath. He was seen by Dr. Richardson yesterday and there is concern for DVT so he was seen in the [facility] ER. Ultrasound demonstrated extensive clot burden through the entire left leg alongside pulmonary embolism. On presentation his platelet count was 40. Prior to initiation of Provenge he had a normal platelet count. He was given heparin in the emergency room. This was discontinued yesterday due to concerns for possible HIT and has since been started on argatroban. Past medical history: Prostate cancer as per above Past surgical history: Biopsy of prostate 2004. Biopsy recurrence in 2017. Family history: Noncontributory Social history: Originally from [facility]. No tobacco or alcohol. Allergies: No known drug allergies Review of systems: 12 point review systems obtained is otherwise negative Medications: Reviewed in the EMR Physical examination: Temp Pulse Resp BP Pulse Ox 38 C 89 17 130/72 H 96 08/08/18 12:00 08/08/18 12:00 08/08/18 12:00 08/08/18 12:00 08/08/18 12:00 O2 (L/minute) 2 General: Pleasant-appearing male appears in no acute distress HEENT: Oropharynx is clear extraocular movements are intact Pulmonary: Clear to auscultation bilaterally Cardiovascular: Regular rhythm Abdomen: Soft nontender nondistended bowel sounds are present Psych: Appropriate affect Neuro: Cranial 2 through 12 intact, motor and sensation intact MSK: No cyanosis or clubbing. Left leg with significant edema from ankle all the way to the thigh with associated erythema. Pulses are intact distally. Skin: No other skin lesions. WBC 7.06 10^3/uL (3.80-9.50) 08/08/18 14:20 RBC 3.67 10^6/uL (4.40-6.38) L 08/08/18 14:20 Hgb 10.9 g/dL (13.7-17.5) L 08/08/18 14:20 Hct 30.8 % (40.0-51.0) L 08/08/18 14:20 MCV 83.9 fL (81.5-99.8) 08/08/18 14:20 MCH 29.7 pg (27.9-34.1) 08/08/18 14:20 MCHC 35.4 g/dL (32.4-36.7) 08/08/18 14:20 RDW 13.1 % (11.5-15.2) 08/08/18 14:20 Plt Count 102 10^3/uL (150-400) L 08/08/18 14:20 MPV 10.0 fL (8.7-11.7) 08/08/18 10:05 Neut % (Auto) 81.7 % (39.3-74.2) H 08/08/18 10:05 Lymph % (Auto) 7.9 % (15.0-45.0) L 08/08/18 10:05 [place] % (Auto) 5.7 % (4.5-13.0) 08/08/18 10:05 Eos % (Auto) 3.7 % (0.6-7.6) 08/08/18 10:05 Baso % (Auto) 0.5 % (0.3-1.7) 08/08/18 10:05 Nucleat RBC Rel Count 0.0 % (0.0-0.2) 08/08/18 10:05 Absolute Neuts (auto) 5.15 10^3/uL (1.70-6.50) 08/08/18 10:05 Absolute Lymphs (auto) 0.50 10^3/uL (1.00-3.00) L 08/08/18 10:05 Absolute Monos (auto) 0.36 10^3/uL (0.30-0.80) 08/08/18 10:05 Absolute Eos (auto) 0.23 10^3/uL (0.03-0.40) 08/08/18 10:05 Absolute Basos (auto) 0.03 10^3/uL (0.02-0.10) 08/08/18 10:05 Absolute Nucleated RBC 0.00 10^3/uL (0-0.01) 08/08/18 10:05 Immature Gran % 0.5 % (0.0-1.1) 08/08/18 10:05 Immature Gran # 0.03 10^3/uL (0.00-0.10) 08/08/18 10:05 RBC/WBC/PLT Morphology TNP 08/08/18 10:05 Platelet Estimate TNP 08/08/18 10:05 Echinocytes 1+ H 08/07/18 13:17 Elliptocytes 1+ H 08/07/18 13:17 PT 15.3 SEC (12.0-15.0) H 08/07/18 13:15 INR 1.19 (0.83-1.16) H 08/07/18 13:15 APTT 39.0 SEC (23.0-38.0) H 08/08/18 14:20 Fibrinogen 277 mg/dL (214-456) 08/07/18 15:15 Sodium 139 mEq/L (135-145) 08/08/18 02:30 Potassium 4.3 mEq/L (3.3-5.0) 08/08/18 02:30 Chloride 106 mEq/L (97-110) 08/08/18 02:30 Carbon Dioxide 27 mEq/l (22-31) 08/08/18 02:30 Anion Gap 6 mEq/L (6-14) 08/08/18 02:30 BUN 27 mg/dL (7-23) H 08/08/18 02:30 Creatinine 1.0 mg/dL (0.7-1.3) 08/08/18 02:30 Estimated GFR > 60 08/08/18 02:30 Glucose 108 mg/dL (70-100) H 08/08/18 02:30 Calcium 9.0 mg/dL (8.5-10.4) 08/08/18 02:30 Magnesium 2.1 mg/dL (1.6-2.3) 08/08/18 02:30 Total Bilirubin 0.6 mg/dL (0.1-1.4) 08/07/18 17:35 AST 24 IU/L (17-59) 08/07/18 17:35 ALT 34 IU/L (21-72) 08/07/18 17:35 Alkaline Phosphatase 56 IU/L (38-126) 08/07/18 17:35 Total Protein 6.4 g/dL (6.3-8.2) 08/07/18 17:35 Albumin 3.5 g/dL (3.5-5.0) 08/07/18 17:35 Patient ABO/Rh A POSITIVE 08/07/18 16:51 Bld Prod Verbal Order YES 08/07/18 16:51 Platelet Orders Status READY 08/07/18 16:51 Assessment and plan: Jordan is a very pleasant 68-year-old male with history of recurrent metastatic prostate cancer is admitted for left lower extremity DVT and pulmonary embolism. 1. Left leg DVT and pulmonary embolism: I reviewed his previous laboratory data which demonstrates a normal platelet count prior to the initiation of Provenge. My concern is that he has heparin-induced thrombocytopenia given the timing, degree of thrombocytopenia, and new thromboembolism. He does have a significant clot burden in his leg and Interventional Radiology was consulted for assessment for possible thrombolysis. I have recommended no heparin products to be given until HIT is evaluated. I have also recommended argatroban which was initiated last night. He has received platelet transfusion for possible thrombolysis. There is also concerned that he may have May-Thurner syndrome as well, however, I would avoid any stenting procedures until the issue of HIT is evaluated. 2. Thrombocytopenia: As per above 3. Metastatic prostate cancer: Being followed by Dr. Richardson. Jordan voices understanding of the plan. Total of 60 min was placed in the complex clinical care with greater than 50% of that involved with direct counseling.
--- NOTE | 2018-08-08 14:44 | GCON ---
CRITICAL CARE CONSULT DATE OF CONSULTATION: 08/08/2018 HISTORY OF PRESENT ILLNESS: This patient is a 68-year-old male with a history of prostate cancer, cu rrently getting ongoing chemotherapy. He also had a recent port placed and has been getting heparin flushes through this. He presented to clinic on a routine visit complaining of lower extremity edema and pain, was sent to the emergency room where an ultrasound showed extensive iliofemoral deep vein thrombosis on the left side with a patent inferior vena cava, but clot extending all the way down to his calf. He was hemodynamically stable, but did undergo further imaging, which did reveal bilateral pulmonary emboli as well. Complicating his history, however, was a platelet count on admission of 4 2. The etiology here is uncertain, but there are concerns about heparin-induced thrombocytopenia. I n any case, thrombolytics therapy was withheld at that time and he was started on argatroban since liver and kidney function were normal. At the time of my evaluation, the patient stated that his leg was still swollen, but he was feeling relatively better from admission. He had no chest pain, sh ortness of breath, palpitations, or syncope. Had never had clot in the past and no family history of thromboembolic disease. REVIEW OF SYSTEMS: Otherwise negative. PAST MEDICAL HISTORY: Includes prostate cancer initially diagnosed in 2003, as described above, randy roesophageal reflux disease. PAST SURGICAL HISTORY: Includes only the line as described. SOCIAL HISTORY: He is a nonsmoker. No alcohol. FAMILY HISTORY: Lacks clot as described above. MEDICATIONS: Home medications, include ranitidine, ibuprofen, and occasional Benadryl. Current medications, include Tylenol, argatroban, Pepcid, Dilaudid p.r.n., Zofran, and normal saline. PHYSICAL EXAM: VITAL SIGNS: Blood pressure 112/66, heart rate 84, sinus rhythm, respirations 23, ox ygen saturation 94% on room air. GENERAL: He was awake, alert, and in no apparent distress, and abl e to speak in full sentences without using accessory muscles for breathing. HEENT: Pupils equally r ound and reactive to light, nonicteric and noninjected. Mucous membranes are moist without erythema or exudate. NECK: Supple without adenopathy or jugular vein distention. RESPIRATORY: Breath sound s were clear to auscultation bilaterally without wheezes rubs or rales. HEART: Regular rate and rhy thm without murmurs, rubs, or gallops. ABDOMEN: Soft, nontender, nondistended without hepatosplenom egaly. EXTREMITIES: His left lower extremity was markedly swollen, nontender, but mildly painful de ep palpation. The right leg appeared to be normal. NEUROLOGIC: Exam was nonfocal, including crania l nerves and deep tendon reflexes. SKIN: Otherwise warm and dry. There was no evidence of cyanosis or pallor, particularly in his distal extremities, and his pulse was palpable. OBJECTIVE DATA: Includes a white count of 5.9 originally was 11.2 on arrival, hematocrit 30.9, plate lets initially 42 up to 68. PTT was greater than 250 at the time of his initial test, his INR was 1. 19. His basic metabolic panel was unremarkable save for potassium of 5.5, it is down to 4.3 without intervention. Glucose was normal. LFTs were normal. Albumin was 3.5. HIT antibodies are pending a t this time, as is a platelet serotonin release assay. ASSESSMENT/PLAN: 1. Fairly extensive clot burden with iliofemoral deep venous thrombosis. I certainly agree with the argatroban at this point. Thrombolytics therapy in this situation directed by catheter has shown to decrease the post-thrombotic syndrome. It is encouraging that there is no evidence of phlegmasia ce nehemiah dol at this time. He is getting platelets now, and if they rise appropriately, he will prob ably get tPA. I suspect that he will need lifelong anticoagulation given the status of his cancer. When the time is appropriate, medications, such as Xarelto and Eliquis could be used for long-term an ticoagulation in addition to warfarin. 2. Thrombocytopenia. I think the risk factors are quite plain here and are highly suggestive of the disorder, and I would avoid all heparin products in the future, and we can monitor his platelet coun t and his response to platelet transfusions. 3. Prostate cancer. This seems to be stable at the moment and no immediate intervention is required . /[id number]/MODL
[2018-08-08 15:24] LABS: PLATELET COUNT 102 10^3/uL (150-400)
[2018-08-08] MEDS ORDERED: LIDOCAINE 1% 300 MG/30 ML SDV ONE (16:55)
[2018-08-08 17:13] LABS: PLATELET COUNT 110 10^3/uL (150-400)
--- NOTE | 2018-08-08 17:25 | PDPROPOC ---
Sedation Plan of Care ASA Classification: ASA 2 Mallampati Score: Class 2 Mallampati Reference Image:
[2018-08-08] MEDS ORDERED: NALOXONE HCL 0.4 MG/ML INJ ONE (17:56)
[2018-08-08] MEDS ORDERED: fentaNYL 100 MCG/2 ML INJ ONE (17:56)
[2018-08-08] MEDS ORDERED: MIDAZOLAM 2 MG/2 ML VIAL ONE ×2 (17:56)
[2018-08-08] MEDS ORDERED: FLUMAZENIL 0.5 MG/5 ML MDV IVP ONE (17:56)
[2018-08-08] MEDS ORDERED: fentaNYL 100 MCG/2 ML INJ IVP PRN (18:14)
[2018-08-08] MEDS ORDERED: MEPERIDINE 25 MG/ML SYR IVP PRN (18:14)
[2018-08-08] MEDS ORDERED: MIDAZOLAM 2 MG/2 ML VIAL IVP PRN (18:14)
[2018-08-08] MEDS ORDERED: NALOXONE HCL 0.4 MG/ML INJ IVP PRN (18:14)
[2018-08-08] MEDS ORDERED: FLUMAZENIL 0.5 MG/5 ML MDV IVP PRN (18:14)
[2018-08-08] MEDS ORDERED: ALTEPLASE 5 MG in NS 100 ML IV SCH (19:00)
[2018-08-08] MEDS ORDERED: LORazepam 1 MG TAB PO PRN (19:35)
[2018-08-08] MEDS ORDERED: PROMETHAZINE HCL 25 MG/ML INJ IVP PRN (19:35)
[2018-08-08] MEDS: NS 1,000 ML IV SCH (23:05)
[2018-08-08] MEDS: BIVALIRUDIN IV SCH (23:07)
[2018-08-08] MEDS: D5W IV SCH (23:07)
[2018-08-08] MEDS: ALTEPLASE 5 MG in NS 100 ML IV SCH (23:08)
[2018-08-09] MEDS: ALTEPLASE 5 MG in NS 100 ML IV SCH ×3 (05:13→16:06)
[2018-08-09 06:07] LABS: PLATELET COUNT 98 10^3/uL (150-400)
[2018-08-09] MEDS: D5W IV SCH ×2 (07:20→14:00)
[2018-08-09] MEDS: BIVALIRUDIN IV SCH ×2 (07:20→14:00)
[2018-08-09] MEDS: NS 1,000 ML IV SCH (09:04)
--- NOTE | 2018-08-09 09:50 | SOAPPROG ---
SOAP Progress Note Assessment/Plan: Assessment/Plan: 68 yo gentleman w metastatic prostate cancer admitted w extensive LLE DVT and PE ass w thrombocytopenia 08/09/18 09:48 1. Extensive LLE DVT and PE - High pretest probability of HIT, confirmatory studies pending s/p thrombolysis yesterday and will be re-evaluated today on argatroban currently and VSS, no e/o bleeding 2. Thrombocytopenia - could be consumptive in setting of such large clot burden but high risk for HIT platelets improved s/p transfusion (needed for thrombolysis) and argatroban 3. ?May Thurner Syndrome - would increase baseline risk for DVT given extrinsic compression of iliocaval symstem venous study seems to suggest this consideration for near future angioplasty w stenting 4. met prostate ca - 3rd dose of Provenge due last week of 08/09/18 09:54 Subjective: s/p thrombolysis yesterday pain improved no bleeding Objective: Vital Signs Temp Pulse Resp BP Pulse Ox 36.8 C 64 12 116/64 100 08/09/18 08:45 08/09/18 08:38 08/09/18 08:38 08/09/18 08:38 08/09/18 08:38 Laboratory Results 08/09/18 05:59 08/09/18 05:59 08/08/18 08/09/18 08/10/18 05:59 05:59 05:59 Intake Total 1435 2361 Output Total 200 410 Balance 1235 1951 PT 15.3 SEC (12.0-15.0) H 08/07/18 13:15 INR 1.19 (0.83-1.16) H 08/07/18 13:15 Gen - NAD HEENT - anicteric, op clear CV - RRR Abd - soft Ext - sig LLE edema, 2+ pulses Neuro - nonfocal ICD10 Worksheet Patient Problems: Problems Problem Status Onset DVT (deep venous thrombosis) Acute Pulmonary embolism Acute Prostate cancer Acute Urinary retention Acute
--- NOTE | 2018-08-09 10:48 | SOAPPROG ---
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 and appreciate tray drier care, thrombolysis in progress Prostate cancer Acute stable and continue care plan presently in place Urinary retention Acute Hx of and if need gage can be placed, pt seems not to be in retention at this time Plan: As per ICU provider, thrombolysis in progress and to be assessed this afternoon 08/09/18 10:46 Subjective: leg pain abated Objective: Vital Signs Temp Pulse Resp BP Pulse Ox 36.8 C 67 20 106/64 100 08/09/18 08:45 08/09/18 10:00 08/09/18 10:00 08/09/18 10:00 08/09/18 10:00 Laboratory Results 08/09/18 05:59 08/09/18 05:59 08/08/18 08/09/18 08/10/18 05:59 05:59 05:59 Intake Total 1435 2361 Output Total 200 410 Balance 1235 1951 PT 15.3 SEC (12.0-15.0) H 08/07/18 13:15 INR 1.19 (0.83-1.16) H 08/07/18 13:15 Physical Exam - Physical Exam General Appearance: alert Respiratory: No respiratory distress Cardiac/Chest: regular rate, rhythm Abdomen: soft Back: No CVA tenderness Extremities: other (left leg less painful) Neuro/Psych: oriented x 3 ICD10 Worksheet Patient Problems: Problems Problem Status Onset DVT (deep venous thrombosis) Acute Pulmonary embolism Acute Prostate cancer Acute Urinary retention Acute
--- NOTE | 2018-08-09 11:09 | PDINTPN ---
Application Coordinator Progress Note Assessment/Plan: 68 M with known metastatic prostate cancer undergoing chemotherapy presented with acute onset severe LE edema at routine clinic followup. edwin in ED showed extensive ileofemoral DVT as well as bilateral PE, though he was hemodynamically stable without evidence of phelgmasia cerulea dolens. He also had new thrombocytopenia, not long after having an indwelling catheter placed for chemo and flushed with heparin. 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 No previous VTE or FH. * Extensive VTE- with several risk factors. Responded well to initially argatroban, followed by catheter directed thrombolysis. Still with some edema today but improved and repeat eval today. Not clear why changed from argatroban to bivalirudin- normal hepatic and renal function. Subjective: Less edema and pain after starting CDT Objective: Vital Signs Temp Pulse Resp BP Pulse Ox 36.8 C 67 20 106/64 100 08/09/18 08:45 08/09/18 10:00 08/09/18 10:00 08/09/18 10:00 08/09/18 10:00 Laboratory Results 08/09/18 05:59 08/09/18 05:59 08/08/18 08/09/18 08/10/18 05:59 05:59 05:59 Intake Total 1435 2361 Output Total 200 410 100 Balance 1235 1951 -100 PT 15.3 SEC (12.0-15.0) H 08/07/18 13:15 INR 1.19 (0.83-1.16) H 08/07/18 13:15 Physical Exam - Physical Exam General Appearance: alert, no apparent distress EENT: PERRL/EOMI Neck: supple Respiratory: lungs clear, normal breath sounds, No respiratory distress, No accessory muscle use Cardiac/Chest: normal peripheral pulses, regular rate, rhythm, edema Abdomen: non-tender, soft, No distended Skin: normal color, warm/dry, No cyanosis Lymphatic: no adenopathy Extremities: non-tender, pedal edema, swelling, No calf tenderness, No Emilie's sign Neuro/Psych: alert, normal mood/affect, oriented x 3 ICD10 Worksheet Patient Problems: Problems Problem Status Onset DVT (deep venous thrombosis) Acute Pulmonary embolism Acute Prostate cancer Acute Urinary retention Acute
--- NOTE | 2018-08-09 15:19 | HOSPPROG ---
Hospitalist Progress Note Assessment/Plan: 68 yo male with metastatic prostate cancer with recent Heparin exposure admitted with acute bilateral PE and LLE DVT and acute thrombocytopenia. 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 #Left LE pedal edema due to above #Hyperkalemia, resolved #possible dehydration, resolved #Metastatic prostate cancer #hx of urinary retention, no longer needing a gage, he reports no difficulties with voiding Full code Plan: -anticoagulation -s/p thrombolysis -Await HIT workup -serial platelets, transfuse if needed Subjective: no cp or sob. no n/v. leg swelling is improving Objective: Vital Signs Temp Pulse Resp BP Pulse Ox 36.8 C 68 12 120/59 L 99 08/09/18 08:45 08/09/18 14:00 08/09/18 14:00 08/09/18 14:00 08/09/18 14:00 Laboratory Results 08/09/18 11:58 08/09/18 05:59 08/08/18 08/09/18 08/10/18 05:59 05:59 05:59 Intake Total 1435 2361 Output Total 200 410 500 Balance 1235 1951 -500 PT 15.3 SEC (12.0-15.0) H 08/07/18 13:15 INR 1.19 (0.83-1.16) H 08/07/18 13:15 - Physical Exam Constitutional: no apparent distress Eyes: PERRL Ears, Nose, Mouth, Throat: moist mucous membranes, hearing normal, ears appear normal Cardiovascular: regular rate and rhythym, edema (LLE edema) Respiratory: no respiratory distress, no rales or rhonchi Gastrointestinal: normoactive bowel sounds, soft, non-tender abdomen Skin: warm Musculoskeletal: full muscle strength Neurologic: AAOx3 Psychiatric: interacting appropriately, not anxious, not encephalopathic Lymph, Heme, Immunologic: No petechiae ICD10 Worksheet Patient Problems: Problems Problem Status Onset DVT (deep venous thrombosis) Acute Pulmonary embolism Acute Prostate cancer Acute Urinary retention Acute
[2018-08-09] MEDS ORDERED: NALOXONE HCL 0.4 MG/ML INJ IVP PRN (18:33)
[2018-08-09] MEDS ORDERED: fentaNYL 100 MCG/2 ML INJ IVP PRN (18:33)
[2018-08-09] MEDS ORDERED: MEPERIDINE 25 MG/ML SYR IVP PRN (18:33)
[2018-08-09] MEDS ORDERED: MIDAZOLAM 2 MG/2 ML VIAL IVP PRN (18:33)
[2018-08-09] MEDS ORDERED: FLUMAZENIL 0.5 MG/5 ML MDV IVP PRN (18:33)
[2018-08-09] MEDS ORDERED: fentaNYL 100 MCG/2 ML INJ ONE (20:50)
[2018-08-09] MEDS ORDERED: ONDANSETRON 4 MG/2 ML VIAL IVP ONE (21:42)
--- NOTE | 2018-08-09 22:02 | PDRADPN ---
Radiology Procedure Note Date of Procedure: 08/09/18 Radiologist: Vinnie Metzger Anesthesia: IV Sedation Pre-op Diagnosis: LLE DVT Post-op Diagnosis: Same Procedure: Thrombolysis, venoplasty, stent placement in common iliac vein Inf/Abcess present in the surg proc area at time of surgery?: No
[2018-08-09] MEDS: APIXABAN 5 MG TAB PO SCH (22:36)
[2018-08-10 05:53] LABS: PLATELET COUNT 96 10^3/uL (150-400)
--- NOTE | 2018-08-10 09:29 | SOAPPROG ---
SOAP Progress Note Assessment/Plan: Assessment/Plan: 68 yo gentleman w metastatic prostate cancer admitted w extensive LLE DVT and PE ass w thrombocytopenia 1. Extensive LLE DVT and PE - High pretest probability of HIT, confirmatory studies pending s/p thrombolysis 08/08 and again 08/09 w venoplasty and stent in common iliac vein on argatroban initially - switched to bivalirudin and now on apixaban 2. 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 met prostate ca - 3rd dose of Provenge due last week of 08/10/18 09:29 Subjective: No acute events Denies LLE pain swelling down Objective: Vital Signs Temp Pulse Resp BP Pulse Ox 36.9 C 83 22 H 98/62 L 96 08/10/18 08:00 08/10/18 08:00 08/10/18 08:00 08/10/18 08:00 08/10/18 08:00 Laboratory Results 08/10/18 05:35 08/10/18 05:35 08/09/18 08/10/18 08/11/18 05:59 05:59 05:59 Intake Total 2361 1959.3 Output Total 410 1425 Balance 1951 534.3 PT 15.3 SEC (12.0-15.0) H 08/07/18 13:15 INR 1.19 (0.83-1.16) H 08/07/18 13:15 Gen - NAD HEENT- anicteric CV - RRR Abd - soft, NT Ext - LLE edema improved 2+ pulses ICD10 Worksheet Patient Problems: Problems Problem Status Onset DVT (deep venous thrombosis) Acute Pulmonary embolism Acute Prostate cancer Acute Urinary retention Acute
[2018-08-10] MEDS: APIXABAN 5 MG TAB PO SCH ×2 (09:39→21:22)
--- NOTE | 2018-08-10 10:49 | SOAPPROG ---
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 and appreciate tire groover care, thrombolysis and stenting done Prostate cancer Acute stable and continue care plan presently in place Urinary retention Acute Hx of and if need gage can be placed, pt seems not to be in retention at this time Plan: As per ICU provider, thrombolysis completed and stent placed 08/10/18 10:47 Subjective: no pain Objective: Vital Signs Temp Pulse Resp BP Pulse Ox 36.9 C 83 22 H 98/62 L 96 08/10/18 08:00 08/10/18 08:00 08/10/18 08:00 08/10/18 08:00 08/10/18 08:00 Laboratory Results 08/10/18 05:35 08/10/18 05:35 08/09/18 08/10/18 08/11/18 05:59 05:59 05:59 Intake Total 2361 1959.3 Output Total 410 1425 Balance 1951 534.3 PT 15.3 SEC (12.0-15.0) H 08/07/18 13:15 INR 1.19 (0.83-1.16) H 08/07/18 13:15 Physical Exam - Physical Exam General Appearance: alert Respiratory: No respiratory distress Cardiac/Chest: regular rate, rhythm Abdomen: soft Back: No CVA tenderness Extremities: other (less edema) Neuro/Psych: alert, oriented x 3 ICD10 Worksheet Patient Problems: Problems Problem Status Onset DVT (deep venous thrombosis) Acute Pulmonary embolism Acute Prostate cancer Acute Urinary retention Acute
--- NOTE | 2018-08-10 11:47 | HOSPPROG ---
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 # possible HIT - no heparin, ab's pending - on eliquis # prostate cancer, metastatic - follows with Dr Richardson Subjective: doing much better today; s/p tPA and stent Objective: Vital Signs Temp Pulse Resp BP Pulse Ox 36.9 C 83 22 H 98/62 L 96 08/10/18 08:00 08/10/18 08:00 08/10/18 08:00 08/10/18 08:00 08/10/18 08:00 Laboratory Results 08/10/18 05:35 08/10/18 05:35 08/09/18 08/10/18 08/11/18 05:59 05:59 05:59 Intake Total 2361 1959.3 Output Total 410 1425 Balance 1951 534.3 PT 15.3 SEC (12.0-15.0) H 08/07/18 13:15 INR 1.19 (0.83-1.16) H 08/07/18 13:[address] abd and CT thorax reviewed discussed with Dr Richardson - Physical Exam Constitutional: no apparent distress, appears nourished Cardiovascular: regular rate and rhythym, no murmur, rub, or gallop Respiratory: no respiratory distress, no rales or rhonchi, clear to auscultation Gastrointestinal: soft, non-tender abdomen, no palpable masses, No rebound, No distension Musculoskeletal: other (L leg edema) ICD10 Worksheet Patient Problems: Problems Problem Status Onset Prostate cancer Acute Urinary retention Acute DVT (deep venous thrombosis) Acute Pulmonary embolism Acute
--- NOTE | 2018-08-10 16:04 | PDCONSULT ---
Occ Med Physician Note: IR Progress Note: POD 1 from venoplasty and stent placement of the left CIV and EIV for chronic thrombus and outflow obstruction. Patient's leg appears much better today with decreased swelling and pain. He has been ambulating on the floor. Plan is for discharge tomorrow. Would continue oral anticoagulation and recommend that his leg remain elevated on 2-3 pillows at home when he's in bed. Compression stockings may also be helpful. Thanks for the consult. Vinnie Metzger MD IR
[2018-08-11 05:25] LABS: PLATELET COUNT 83 10^3/uL (150-400)
[2018-08-11] MEDS: APIXABAN 5 MG TAB PO SCH ×2 (08:08→21:32)
[2018-08-11] MEDS ORDERED: LIDOCAINE 1% 300 MG/30 ML SDV ONE ×2 (08:36→14:45)
[2018-08-11] MEDS ORDERED: IOPAMIDOL (ISOVUE-300) 100 ML BTL ONE (08:36)
--- NOTE | 2018-08-11 12:22 | SOAPPROG ---
SOAP Progress Note Assessment/Plan: Assessment: 1. 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 L leg DVT s/p thrombolysis and stent placement 4. Heparin induced thrombocytopenia, antibody positive May-thurner syndrome could explain his clot alone, but he clearly has HIT antibodies as well. plts stable but overall improved vs 4 days ago. Plan: - continue eliquis; if plts are falling, may need to change back to argatroban - pt should not receive any further heparin products given HIT antibody 25 min spent w/ pt and in coordination of care. 08/11/18 12:20 Subjective: leg feels better. wants to eat. Objective: exam: NAD lungs CTAB CV RRR no mGR Abd: +BS NT ND ext: no swelling L leg skin: no petechie, purpura Vital Signs Temp Pulse Resp BP Pulse Ox 36.8 C 84 18 132/75 H 92 08/11/18 07:33 08/11/18 10:08 08/11/18 07:33 08/11/18 10:08 08/11/18 07:33 Laboratory Results 08/11/18 04:29 08/10/18 05:35 08/10/18 08/11/18 08/12/18 05:59 05:59 05:59 Intake Total 1959.3 900 Output Total 1425 300 Balance 534.3 600 PT 15.3 SEC (12.0-15.0) H 08/07/18 13:15 INR 1.19 (0.83-1.16) H 08/07/18 13:15 ICD10 Worksheet Patient Problems: Problems Problem Status Onset DVT (deep venous thrombosis) Acute Pulmonary embolism Acute Prostate cancer Acute Urinary retention Acute
--- NOTE | 2018-08-11 15:33 | HOSPPROG ---
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 - on eliquis - plts lower today; recheck again tomorrow # prostate cancer, metastatic - follows with Dr Richardson - port removed today as it requires being locked with heparin Subjective: had port removed today; no significant pain in the chest/neck area Objective: Vital Signs Temp Pulse Resp BP Pulse Ox 37.0 C 92 14 131/75 H 91 L 08/11/18 15:18 08/11/18 15:18 08/11/18 15:18 08/11/18 15:18 08/11/18 15:18 Laboratory Results 08/11/18 04:29 08/10/18 05:35 08/10/18 08/11/18 08/12/18 05:59 05:59 05:59 Intake Total 1959.3 900 Output Total 1425 300 Balance 534.3 600 PT 15.3 SEC (12.0-15.0) H 08/07/18 13:15 INR 1.19 (0.83-1.16) H 08/07/18 13:[address] Richardson ICD10 Worksheet Patient Problems: Problems Problem Status Onset Prostate cancer Acute Urinary retention Acute DVT (deep venous thrombosis) Acute Pulmonary embolism Acute
--- NOTE | 2018-08-11 16:03 | ASMTCMCOM ---
CM Note CM Note Notes: Pt has HIT antibodies, to avoid heparin so port was removed and platelets to be rechecked tomorrow. CM will continue to follow for d/c needs. Date Signed: 08/11/2018 04:03 PM Electronically Signed By:NASEEM [place]
[2018-08-12 05:19] LABS: PLATELET COUNT 82 10^3/uL (150-400)
[2018-08-12 07:49] VITALS: BP 137/83
[2018-08-12] MEDS: APIXABAN 5 MG TAB PO SCH (09:58)
--- NOTE | 2018-08-12 14:54 | SOAPPROG ---
SOAP Progress Note Assessment/Plan: Assessment: DVT prostate cancer Plan: Agree with plan for discharge. Started on Xarelto. Our office will arrange followup and attempt at final Provenge. 08/12/18 14:53 Subjective: Feels well. Good energy Objective: Vital Signs Temp Pulse Resp BP Pulse Ox 36.6 C 80 14 137/83 H 93 08/12/18 07:49 08/12/18 07:49 08/12/18 07:49 08/12/18 07:49 08/12/18 07:49 Laboratory Results 08/12/18 04:24 08/10/18 05:35 08/11/18 08/12/18 08/13/18 05:59 05:59 05:59 Intake Total 900 Output Total 300 Balance 600 PT 15.3 SEC (12.0-15.0) H 08/07/18 13:15 INR 1.19 (0.83-1.16) H 08/07/18 13:15 Physical Exam - Physical Exam General Appearance: alert, no apparent distress Respiratory: normal breath sounds, No respiratory distress Skin: normal color Neuro/Psych: no motor/sensory deficits, alert ICD10 Worksheet Patient Problems: Problems Problem Status Onset DVT (deep venous thrombosis) Acute Pulmonary embolism Acute Prostate cancer Acute Urinary retention Acute
--- NOTE | 2018-08-12 16:08 | PDDCSUM ---
Discharge Summary Discharge Summary: DISCHARGE SUMMARY FOLLOW-UP ITEMS: 1. Continue to reinforce to the patient that he will most likely require systemic anticoagulation indefinitely 2. Reassess patient's ongoing prostate cancer options at the [facility]rology [facility] DATE OF ADMISSION: 08/07/2018 DATE OF DISCHARGE: 08/12/2018 DISCHARGE DIAGNOSES: 1. Extensive left lower extremity DVT present on admission 2. Acute pulmonary embolism present on admission 3. 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 Metastatic prostate cancer CONSULTATIONS: Urology, hematology PROCEDURES / IMAGING: Right chest port removal Catheter directed tPA Iliac vein stent CHIEF COMPLAINT: Acute left lower extremity edema and pain SUBJECTIVE: Patient is feeling well at time of discharge, he is refusing to utilize Eliquis secondary to twice daily dosing, he is amenable to Xarelto at this time PHYSICAL EXAM ON DISCHARGE: Systolic blood pressure 130, heart rate 90, afebrile overnight, satting well on room air, negative orthostatic vital signs, left lower extremity is very mildly edematous, not indurated, not tender to palpation comma musculature is visible, no erythema around the catheter site calf, no erythema around the right chest port removal site LABS ON DISCHARGE: Hemoglobin 10.4, platelets 82,000 HOSPITAL COURSE BY PROBLEM: The patient presented with an extensive left lower extremity DVT and subsequent pulmonary embolism. The patient was also noted to have acute thrombocytopenia on presentation and he was HIT antibody positive. 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 Hematology was consulted, and the patient was initiated on Argatroban initially , then Eliquis after he underwent catheter directed tPA. He had an iliac vein stent placed by IR. He was also recommended that the patient has chest port be removed, as he would no longer be able to tolerate routine heparin flushes to keep the port open. The port was subsequently removed and the patient will follow up with Dr. Richardson for ongoing prostate cancer treatment options. His platelet count did stabilize greater than 80,000, and the patient declined to utilize Eliquis moving forward given its twice daily dosing. The patient was amenable to initiating Xarelto, despite its initial loading dosage of 15 mg twice daily, given that his long-term dosing would likely be 20 mg once daily. I recommend that the patient follow up with Dr. 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 DISCHARGE MEDICATIONS: Please see official discharge medication reconciliation sheet in chart , Xarelto starter pack, Tylenol as needed for pain, recommend no NSAIDs. DISCHARGE INSTRUCTIONS: Please follow up with Dr. Louie Richardson and Dr. Pio Bullock. TIME SPENT: Greater than 30 minutes were spent on direct patient care, as well as discharge planning and preparation.
--- NOTE | 2018-08-12 16:13 | ASMTCMCOM ---
CM Note CM Note Notes: Pt medically stable for d/c, no CM d/c needs identified. Date Signed: 08/12/2018 04:13 PM Electronically Signed By:NASEEM [place]
--- NOTE | 2018-08-12 16:14 | ASMTLACE ---
LACE Length of stay for Answers: 4-6 days current admission Acuity / Level of Answers: Yes Care: Did the patient have an inpatient admission? Comorbidities - select Answers: Any tumor (including all that apply lymphoma or leukemia) # of Emergency department Answers: 1-2 visits in the last 6 months Score: 10 Date Signed: 08/12/2018 04:14 PM Electronically Signed By:NASEEM Dallas
[2018-08-16] MEDS ORDERED: APIXABAN 5 MG TAB PO SCH (21:00)
== END 2018-08-12 15:53 | disposition home or self-care (01) | DRG 270 ==
LOC: F2N 17:01 → F3N 08-10 18:27
PROVIDERS: ADMIT Family Medicine; ATTEND Family Medicine
DX: I82.423 Acute embolism and thrombosis of iliac vein, bilateral (principal); I26.99 Other pulmonary embolism without acute cor pulmonale; D75.82 Heparin induced thrombocytopenia (HIT); E87.5 Hyperkalemia; Z85.46 Personal history of malignant neoplasm of prostate; Z92.3 Personal history of irradiation
CPT/HCPCS: 86022-90; C1757; C1769; C1876; C1894; C2628; J0583; J0883; J1644; J2250; J2310; J2405; J2550; J2997; J3010; P9035; Q9967

== ENCOUNTER 2018-10-19 17:38 | Observation (INO) | payer OTHER ==
[2018-10-19] MEDS ORDERED: NS 500 ML IV ONE (18:33)
--- NOTE | 2018-10-19 18:38 | EDPHY ---
H & P Time Seen by Provider: 10/19/18 17:52 HPI/ROS: CHIEF COMPLAINT: Loss of vision HISTORY OF PRESENT ILLNESS: The patient is a 68-year-old male who presents emergency department stating that he had a sudden loss of vision at around 4:20 p.m.. 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 He is currently taking Xarelto. Patient also is being treated for metastatic prostate cancer. Patient has been receiving immunotherapy for his prostate cancer. Patient was driving to [place] when he noticed sudden loss in his vision. He pulled over the side of the road. He lost vision in both eyes. This lasted for approximately 20 sec. The patient states he had 2 previous episodes of losing his vision earlier this month. Patient has a posterior headache that is mild. He has no focal weakness or numbness. No current visual change. REVIEW OF SYSTEMS: 10 systems were reveiwed and are negative with the exception of the elements mentioned in the history of present illness. 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 Eyelids: Normal inspection. Conjunctiva and sclera: Normal inspection. No subconjunctival hemorrhage. No exudate. Not injected. Corneas: Normal inspection. EOMs: Intact. Pupils: PERRL, normal accommodation. No APD. Anterior chambers: Normal inspection. Posterior segments: Normal funduscopic exam GENERAL: Well-appearing, in no acute distress, alert. NECK: Normal, supple. RESPIRATORY: Clear to auscultation bilaterally, no rales, rhonchi or wheezing. CVS: Regular rate and rhythm, no rubs, murmurs, or gallops. ABDOMEN: Soft, nontender, nondistended, no organomegaly. BACK: Normal to inspection, no CVA tenderness. SKIN: Normal color, no rash, warm, dry. No pallor. EXTREMITIES: No pedal edema, no calf tenderness, no Homans sign or cords, no joint swelling. NEURO/PSYCH: Alert and oriented, normal mood and affect, normal motor sensory exam. No obvious cranial nerve deficit. Constitutional: Initial Vital Signs Temperature (C) 36.9 C 10/19/18 17:42 Heart Rate 83 10/19/18 17:42 Respiratory Rate 18 10/19/18 17:42 Blood Pressure 152/113 H 10/19/18 17:42 O2 Sat (%) 97 10/19/18 17:42 O2 Delivery Mode Room Air Allergies/Adverse Reactions: No Known Allergies Allergy (Verified 02/28/18 11:59) Home Medications: Medication Instructions Recorded Herbals/Supplements -Info Only 1 ea PO DAILY 10/19/18 Rivaroxaban [Xarelto] 20 mg PO DAILY 10/19/18 Medical Decision Making - Diagnostics Imaging Results: Imaging Impressions Head CT 10/19/18 18:33 Impression: Remote left cerebellar infarction. Nothing acute identified. Final concordant results called to Dr. An at 19:34 PM General information for patients regarding this examination can be found at [email or web address]. If you have questions or comments about this report, please contact me at (hospital) or [phone] (cell). Head CTA 10/19/18 18:33 Impression: Normal CT angiogram of the brain. No source for transient visual loss identified. Final concordant results called to Dr. An at 197:40 PM. ED Course/Re-evaluation: In the emergency department I discussed possible etiologies with the patient. I answered all his questions. IV was placed. Laboratory studies were obtained. CT of the head and CT angio of the headwere ordered. EKG shows normal sinus rhythm, normal rate, normal axis, normal intervals. There are no ST or T-wave abnormalities. EKG is normal as interpreted by me. Patient's white count is normal. Patient is mildly anemic with hematocrit of 39. Patient's chemistry panel is notable for a low anion gap of 5. CT of the head/CT angio of the head: Please refer the dictated report by Dr. Nguyen. No acute disease noted. I discussed the results with the patient. I answered all his questions. The patient will be admitted for further observation. I discussed the case with Dr. Santos who accepted the patient. Differential Diagnosis: Differential includes but is not limited to ischemic CVA, hemorrhagic CVA, TIA, dissection, aneurysm, CRAO, CRVO - Data Points Laboratory Results: Laboratory Results 10/19/18 18:08 10/19/18 18:08 10/19/18 10/19/18 10/19/18 18:48 18:08 18:08 WBC RBC Hgb Hct MCV MCH MCHC RDW Plt Count MPV Neut % (Auto) Lymph % (Auto) Kendall % (Auto) Eos % (Auto) Baso % (Auto) Nucleat RBC Rel Count Absolute Neuts (auto) Absolute Lymphs (auto) Absolute Monos (auto) Absolute Eos (auto) Absolute Basos (auto) Absolute Nucleated RBC Immature Gran % Immature Gran # PT 17.2 SEC H SEC (12.0-15.0) INR 1.39 H (0.83-1.16) APTT 34.8 SEC SEC (23.0-38.0) Sodium 138 mEq/L mEq/L (135-145) Potassium 4.3 mEq/L mEq/L (3.5-5.2) Chloride 106 mEq/L mEq/L (97-110) Carbon Dioxide 27 mEq/l mEq/l (22-31) Anion Gap 5 mEq/L L mEq/L (6-14) BUN 22 mg/dL mg/dL (7-23) Creatinine 0.9 mg/dL mg/dL (0.7-1.3) Estimated GFR > 60 Glucose 99 mg/dL mg/dL (70-100) Calcium 9.2 mg/dL mg/dL (8.5-10.4) POC Troponin I 0.01 ng/mL ng/mL (0.00-0.08) 10/19/18 18:08 WBC 5.02 10^3/uL 10^3/uL (3.80-9.50) RBC 4.88 10^6/uL 10^6/uL (4.40-6.38) Hgb 13.2 g/dL L g/dL (13.7-17.5) Hct 39.7 % L % (40.0-51.0) MCV 81.4 fL L fL (81.5-99.8) MCH 27.0 pg L pg (27.9-34.1) MCHC 33.2 g/dL g/dL (32.4-36.7) RDW 14.4 % % (11.5-15.2) Plt Count 226 10^3/uL 10^3/uL (150-400) MPV 9.5 fL fL (8.7-11.7) Neut % (Auto) 65.5 % % (39.3-74.2) Lymph % (Auto) 23.3 % % (15.0-45.0) Kendall % (Auto) 5.8 % % (4.5-13.0) Eos % (Auto) 4.0 % % (0.6-7.6) Baso % (Auto) 1.2 % % (0.3-1.7) Nucleat RBC Rel Count 0.0 % % (0.0-0.2) Absolute Neuts (auto) 3.29 10^3/uL 10^3/uL (1.70-6.50) Absolute Lymphs (auto) 1.17 10^3/uL 10^3/uL (1.00-3.00) Absolute Monos (auto) 0.29 10^3/uL L 10^3/uL (0.30-0.80) Absolute Eos (auto) 0.20 10^3/uL 10^3/uL (0.03-0.40) Absolute Basos (auto) 0.06 10^3/uL 10^3/uL (0.02-0.10) Absolute Nucleated RBC 0.00 10^3/uL 10^3/uL (0-0.01) Immature Gran % 0.2 % % (0.0-1.1) Immature Gran # 0.01 10^3/uL 10^3/uL (0.00-0.10) PT INR APTT Sodium Potassium Chloride Carbon Dioxide Anion Gap BUN Creatinine Estimated GFR Glucose Calcium POC Troponin I Medications Given: Discontinued Medications Sodium Chloride (Ns) 500 mls @ 0 mls/hr IV ONCE ONE; Wide Open PRN Reason: Protocol Stop: 10/19/18 18:34 Last Admin: 10/19/18 18:50 Dose: 500 mls Point of Care Test Results: Chemistry 10/19/18 18:48 POC Troponin I 0.01 ng/mL ng/mL (0.00-0.08) Departure - Departure Disposition: [facility] Acute Clinical Impression: Vision loss Condition: Good
[2018-10-19 18:43] LABS: PLATELET COUNT 226 10^3/uL (150-400)
[2018-10-19 18:52] LABS: INR 1.39 (0.83-1.16); PROTIME(PATIENT) 17.2 SEC (12.0-15.0)
[2018-10-19] MEDS ORDERED: IOPAMIDOL (ISOVUE 370) 100 ML BTL IV ONE (18:53)
--- NOTE | 2018-10-19 20:35 | CPEKG ---
Test Reason : OPEN Blood Pressure : / mmHG Vent. Rate : 079 BPM Atrial Rate : 079 BPM P-R Int : 156 ms QRS Dur : 078 ms QT Int : 400 ms P-R-T Axes : 059 053 044 degrees QTc Int : 459 ms Sinus rhythm Abnormal R-wave progression, early transition Confirmed by Isaiah Figueroa ([id number]) on 10/19/2018 8:35:05 PM Referred By: Confirmed By:Isaiah Figueroa
--- NOTE | 2018-10-19 22:43 | PDGENHP ---
History and Physical History and Physical: CC: Transient episodes of visual loss HISTORY: This gentleman comes into the ER today complaining of 4 episodes in the past 9 days, including 1 today, of transient total visual loss. These episodes he says come on out of the blue without preceding symptoms and last approximately 5 sec after which time his vision returns normally. He describes seeing absolutely nothing but graham throughout the entire visual field both eyes during these episodes. Some of the episodes have been associated with some minor by temporal headache that is very brief as well. He has had no other neurologic symptoms, no ocular pains, no fevers, no syncopal type symptoms, nothing that sounds like seizure. In addition to the above patient says recently he has had a few episodes where he notices some discomfort in his left chest during sleep. These are did difficult to discern in terms of their exact nature and duration as the patient has trouble describing them to me. He does not have dyspnea nausea or diaphoresis during these episodes and does not notice any palpitations. Patient does take Xarelto because of a recent diagnosis of PE and DVT. He was hospitalized here at that time in July. 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 He also at that time had heparin-induced thrombocytopenia with low platelets induced by his Heparin. He has not had any bleeding issues while on the Xarelto. 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 I have reviewed the list and ordered appropriate medicines. PHYSICAL EXAMINATION: Vital Signs: Some hypertension on arrival which is resolved spontaneously, otherwise stable without fever Size Painter: Sinus Examination: General: alert, oriented, good mentation, relaxed Skin: warm, dry, good color, no rash HEENT: normal Neck: no mass or jvd Resps: relaxed Lungs: clear breath sounds Heart: regular, no murmur Abdomen: soft, nondistended, nontender, +BS, no mass Upper Extremities: normal Lower Extremities: There is still some edema in his right leg from his prior DVT, left leg is warm with good color No Bleeding or bruising Neurologic: normal speech/language, normal safety lead, no focal weakness IV site: looks normal LABORATORY DATA: Minimal microcytic anemia on CBC which is otherwise normal Normal metabolic panel and Normal troponin RADIOLOGY STUDIES: I reviewed images from CT angio of head as well as CT scan of head noncontrast. There are no acute abnormalities in the brain though there is a old appearing area of encephalomalacia in the right cerebellum which probably represents old stroke. 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 Isaiah Figueroa I have reviewed the patient's past medical records as part of this assessment, including previous hospital admission records
[2018-10-19] MEDS ORDERED: ONDANSETRON 4 MG/2 ML VIAL IVP PRN (22:45)
[2018-10-19] MEDS ORDERED: ZOLPIDEM TARTRATE 5 MG TAB PO PRN (22:45)
[2018-10-19] MEDS ORDERED: ACETAMINOPHEN 325 MG TAB PO PRN (22:45)
[2018-10-20] MEDS ORDERED: RIVAROXABAN 20 MG TAB PO SCH (09:00)
--- NOTE | 2018-10-20 10:59 | HOSPPROG ---
Hospitalist Progress Note Assessment/Plan: Mr Barboza is a 68 y/o male who presented to the ER w Transient total vision loss. 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 Also has a recnt hx of PE and DVT. First encounter, chart reviewed. Reviewed his care w Dr Dockery and he is to get a carotid study. 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 No chest pain, vision is fine. Objective: Vital Signs Temp Pulse Resp BP Pulse Ox 36.8 C 70 18 149/89 H 96 10/20/18 07:26 10/20/18 07:26 10/20/18 07:26 10/20/18 07:26 10/20/18 07:26 10/19/18 10/20/18 10/21/18 05:59 05:59 05:59 Intake Total 1000 Output Total 300 Balance 1000 -300 PT 17.2 SEC (12.0-15.0) H 10/19/18 18:08 INR 1.39 (0.83-1.16) H 10/19/18 18:08 - Physical Exam Constitutional: no apparent distress, appears nourished, not in pain Eyes: PERRL Ears, Nose, Mouth, Throat: hearing normal Cardiovascular: regular rate and rhythym, no murmur, rub, or gallop Respiratory: no respiratory distress Gastrointestinal: normoactive bowel sounds Skin: warm Musculoskeletal: full muscle strength Neurologic: AAOx3, CN II-XII Intact, No weakness, No numbness, No pronator drift , No facial droop Psychiatric: interacting appropriately ICD10 Worksheet Patient Problems: Problems Problem Status Onset Vision loss Acute DVT (deep venous thrombosis) Acute Prostate cancer Acute Pulmonary embolism Acute Urinary retention Acute
--- NOTE | 2018-10-20 10:59 | ECHO ---
[email or web address] [address] [address] Main: [phone] Fax: [email or web address] Echocardiogram Name: RUBEN ROSAS MR#: [id number] Study Date: 10/20/2018 Study Time: 09:02 AM Date of : 1950 Age: 68 year(s) Height: 165.1 cm (65 in.) Weight: 76.2 kg (168 lb.) BSA: 1.84 m2 Gender: Male Examination: Echo Indication: Several episodes of transent blindness both eyes/episodes of chest pain during sleep Image Quality: Contrast: Requested by: Matt Santos BP: 140 mmHg/89 mmHg Heart Rate: Rhythm: Indication: Several episodes of transent blindness both eyes/episodes of chest pain during sleep Procedure Staff Animal Tech: Ira Mirza RDCS Reading Physician: Deon Min MD Requesting Provider: Conclusions: Mild concentric LV hypertrophy. Normal global systolic LV function. The ejection fraction is estimated to be 65-70 %. Mild mitral valve regurgitation is present. Trivial aortic valve regurgitation. Trivial to mild tricuspid valve regurgitation. The pulmonary artery pressure is normal. Measurements: Chambers Valvular Assessment AV/MV Valvular Assessment TV/PV Normal Normal Normal Name Value Range Name Value Range Name Value Range Ao Mariela (MM): 3.6 cm (2.2 cm-3.7 AV Vmax: 1.39 m/s (1 m/s-1.7 TR Vmax: 2.27 mm/s ( - ) cm) m/s) TR PGmax: 21 mmHg ( - ) IVSd (2D): 0.5 cm (0.6 cm-1.1 AV meanP mmHg ( - ) syst. PAP: 26 mmHg ( - ) cm) MV E Vmax: 0.83 m/s ( - ) LVDd (2D): 4.7 cm (4.2 cm-5.9 MV A Vmax: 0.94 m/s ( - ) cm) MV E/A: 0.88 ( - ) LVEF (BP): 76 % (>=55 %) EF Range: 65-70 % Continued Measurements: Chambers Valvular Assessment AV/MV Valvular Assessment TV/PV Name Value Name Value Name Value LADs: 3.5 cm MV E' Septal: 0.08 m/s CVP (est.): 5 mmHg LADs Lon.0 cm MV E/E' Septal: 11.10 LA Area: 16.5 cm2 MV E/E' Lateral: 10.20 LA Volume: 54 ml Patient: RUBEN ROSAS Study Date: 10/20/2018 Page 1 of 2 09:02 AM LA Volume Index: 29.3 ml/m2 Additional Vessels Name Value Ao Ascendin.5 cm Findings: Left Ventricle: Normal size left ventricle. Mild concentric LV hypertrophy. Normal global systolic LV function. The ejection fraction is estimated to be 65-70 %. No regional wall motion abnormality. Normal diastolic LV function. Right Ventricle: Normal size right ventricle. Left Atrium: The left atrium is normal in size. Right Atrium: The right atrium is normal in size. Mitral Valve: The mitral valve is normal in appearance and function. Mild mitral valve regurgitation is present. Aortic Valve: The aortic valve is normal in appearance and function. Trivial aortic valve regurgitation. Tricuspid Valve: The tricuspid valve is normal in appearance and function. Trivial to mild tricuspid valve regurgitation. The pulmonary artery pressure is normal. Pulmonic Valve: Pulmonary valve not well visualized. Aorta: The aorta is normal. Pericardium: No pericardial effusion. (No Signature Object) Patient: RUBEN ROSAS Study Date: 10/20/2018 Page 2 of 2 09:02 AM [id number]
--- NOTE | 2018-10-20 12:06 | ASMTCASEMG ---
Living Arrangements What is your living Answers: With Spouse arrangement? Who do you live with? Type Of Residence What kind of residence do Answers: House you live in? Discharge Plan Comments Coordination Status Comments Notes: Patient is a 68yo male who has been admitted for 4 brief episodes of transient binocular blindness with total visual field loss, recent episodes of chest pain, recent pulmonary embolus and DVT, May Dorado Syndrome. He is currently OBS status. No therapies ordered at this time. D/C plan TBD. CM will follow. Date Signed: 10/20/2018 12:06 PM Electronically Signed By:Brittny Paiz LCSW
--- NOTE | 2018-10-20 13:11 | NEUROPROG ---
Assessment: [id number] - Neurology Consult: - CC: Transient Episodes of Vision Loss - HPI: Pt was on Xarelto for a PE/DVT in July 2018. He reported for the 9 days preceding 10/18/18 he had 4 episodes of brief bilateral vision greying out for 5 seconds with return to normal vision quickly afterwards. He presented to [facility] ER on 10/19/18 and was admitted. I initially saw the patient on 10/20/18. His neurologic exam on 10/20/18 was normal. I will proceed with full stroke evaluation (brain MRI, 24 hour telemetry, TTE, carotid U/S) to evaluate his symptoms. - PMHx: metastatic prostate cancer, PE/DVT July 2018, February Dorado syndrome, status post thrombolysis and stent for DVT - SHx: no tobacco FHx: no strokes - ROS: Pt denied acute fever, total vision loss, active severe chest pain, respiratory failure, total body severe rash, total bowel/bladder incontinence, psychosis, active seizures, or active bleeding - O: VS reviewed General: Alert Eyes: Fundoscopic exam not able to visualize optic disks CV: Heart RRR, no murmur, no carotid bruit Lungs: Clear to auscultation bilaterally, no rhonchi or rales Neuro: - Mental: . Oriented x person/place/date . concentration appears normal . speech fluency/comprehension normal . memory appears normal . fund of knowledge appear intact - Cranial Nerves: . II: PERRL, VFFTC . III/IV/: EOMI, no nystagmus, normal smooth pursuits, no Ptosis . V: facial sensation intact to LT . VII: face symmetric to eye closure and smile . VIII: hearing intact to conversation . IX/X: uvula raises symmetrically . XI: SCM 5/5 B/L strength . XII: tongue protrudes midline w/nl strength - Motor: . Tone: normal tone in all 4 extremity . 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 Transient binocular vision greying out for 5 seconds - 2. Possible Old left cerebellar infarct: will further evaluate with brain MRI - Plan: - Continue xarelto for DVT/PE, will also help with stroke prevention - Brain MRI wo - Carotid U/S - TTE - 24 hour telemetry - Blood pressure < 220/120 x 48 hours then < 140/90 long-term - LDL goal < 70 - H1AC goal < 7.0 Objective: Vital Signs Temp Pulse Resp BP Pulse Ox 36.6 C 70 17 139/94 H 95 10/20/18 11:58 10/20/18 11:58 10/20/18 11:58 10/20/18 11:58 10/20/18 11:58 10/19/18 10/20/18 10/21/18 05:59 05:59 05:59 Intake Total 1000 Output Total 300 Balance 1000 -300 PT 17.2 SEC (12.0-15.0) H 10/19/18 18:08 INR 1.39 (0.83-1.16) H 10/19/18 18:08 Allergies/Adverse Reactions: No Known Allergies Allergy (Verified 02/28/18 11:59)
--- NOTE | 2018-10-20 15:22 | CPEKG ---
Test Reason : OPEN Blood Pressure : / mmHG Vent. Rate : 069 BPM Atrial Rate : 070 BPM P-R Int : 169 ms QRS Dur : 078 ms QT Int : 418 ms P-R-T Axes : 029 039 036 degrees QTc Int : 448 ms Sinus rhythm Abnormal R-wave progression, early transition Confirmed by Fracisco Bay ([id number]) on 10/20/2018 3:22:13 PM Referred By: Confirmed By:Fracisco Bay
[2018-10-20 16:50] VITALS: BP 141/86
--- NOTE | 2018-10-20 17:07 | GDS ---
DISCHARGE DIAGNOSES: 1. Transient vision loss. 2. Chest discomfort during sleep. 3. History of pulmonary embolus and deep vein thrombosis. 4. 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 CONSULTATION: Dr. Catarino Dockery. BRIEF HISTORY: The patient is a very nice 68-year-old gentleman. He reported for 9 days preceding October 18, he had 4 episodes of brief bilateral vision going out for 5 seconds and then his vision returned back to normal quickly. He was placed on telemetry. He has been in sinus rhythm. His head CT showed a remote left cerebellar infarction. Nothing acute was identified. CT of the head was stable. No source for transient visual loss was identified. Subsequently, a brain MRI was performed. This showed mild periventricular deep hemispheric white matter change, which is seen with nonspecific and can be seen in small-vessel ischemic disease. He has no evidence for an acute infarct. It shows an old remote infarct in the inferior left cerebellum. A carotid Doppler study was performed that showed patent antegrade vertebral arteries. There is no sonographic evidence of hemodynamically significant ICA stenosis. Echocardiogram showed mild concentric LV hypertrophy. He has normal global systolic LV function. His EF is estimated to be 65% to 70%. He has no regional wall abnormality. His left and right atriums are normal in size with normal pulmonary artery pressures. He was monitored on the monitor. He has been in sinus rhythm. In addition, there was concern because he has some chest discomfort when he is asleep. A troponin was checked x2. This was negative. His EKG showed nothing acute. Will have him do further stress testing with his PCP. HOSPITAL COURSE BY PROBLEM: 1. Transient vision loss. This has completely resolved. I told him to return to the ER if he should have any further issues. 2. Chest discomfort during his sleep. He had no chest pain during my interview. Recommend he get outpatient stress testing. 3. History of PE and DVT on Xarelto. 4. History of May Dordao syndrome. He is status post thrombolysis and stent placement. DISCHARGE CONDITION: Stable. VITAL SIGNS: Blood pressure is 139/94, heart rate is 70, respiratory rate is 17, O2 sats on room air 95%. Temperature is 36.6 Celsius. MEDICATIONS AT DISCHARGE: Please see the EMR. DISCHARGE INSTRUCTIONS: 1. To return to the ER if he should have any stroke-like symptoms. 2. To follow up with his primary care doctor to get further cardiac testing. Copy requested to: Dr. Dockery /[id number]/MODL [email or web address]
[2018-10-20] MEDS ORDERED: MELATONIN 3 MG TAB PO SCH (21:00)
== END 2018-10-20 17:40 | disposition home or self-care (01) ==
LOC: F3N 21:21
PROVIDERS: ADMIT Internal Medicine; ATTEND Internal Medicine
DX: H53.123 Transient visual loss, bilateral (principal); R07.9 Chest pain, unspecified; E86.9 Volume depletion, unspecified; R29.700 NIHSS score 0; C61 Malignant neoplasm of prostate; Z79.01 Long term (current) use of anticoagulants; Z86.711 Personal history of pulmonary embolism; Z86.718 Personal history of other venous thrombosis and embolism; Z86.73 Personal history of transient ischemic attack (TIA), and cerebral infarction without residual deficits; Z92.3 Personal history of irradiation; Z95.828 Presence of other vascular implants and grafts
CPT/HCPCS: 70450; 70496; 70551; 93005; 93306; 93880; 96360; 99285; G0378; Q9967; 84484-ER